=== PATIENT | female | born 1965 | race Caucasian/White ===

== ENCOUNTER → 2021-03-08 | Outpatient (CLI) | payer OTHER ==
[2021-03-08 19:26] LABS: ALT 17 U/L (8-44); AST 16 U/L (13-35); African American GFR (CKD) 94.2 (60.0-200.0); Albumin 4.3 g/dL (3.8-4.9); Albumin/Globulin Ratio 1.72 (1.60-3.17); Alkaline Phosphatase 68 U/L (41-126); BUN/Creat Ratio 17.63 Ratio (12.00-20.00); Blood Urea Nitrogen 14.1 mg/dL (9.0-27.0); Calcium 9.3 mg/dL (8.7-10.3); Carbon Dioxide 24.2 mmol/L (20.0-27.5); Chloride 106 mmol/L (96-109); Chol/HDL Ratio 3.13 Ratio; Globulin 2.5 g/dL (1.6-3.3); Glucose 94 mg/dL (70-110); LDL Cholesterol,Calculated 109.3 mg/dL (0.0-131.0); Non-African American GFR(CKD) 81.3 (60.0-200.0); Potassium 4.1 mmol/L (3.5-5.5); Sodium 140 mmol/L (135-145); Total Protein 6.8 g/dL (6.2-8.2); VLDL Calculation 18.74 mg/dL (5.00-40.00)
[2021-03-08 19:59] LABS: Basophils # (A) 0.07 X 10*3/uL (0.00-0.10); Eosinophils # (A) 0.17 X 10*3/uL (0.04-0.35); Eosinophils % (A) 2.5 %; HCT 40.9 % (37.2-46.3); HGB 12.9 g/dL (12.0-15.0); Lymphocytes # (A) 2.15 X 10*3/uL (0.90-5.00); Lymphocytes % (A) 31.9 %; MCH 30.7 pg (27.0-32.0); MCHC 31.5 g/dL (32.0-37.0); MCV 97.4 fL (80.0-97.0); Mean Platelet Volume 10.3 fL (9.5-12.2); Monocytes # (A) 0.43 X 10*3/uL (0.20-1.00); Monocytes % (A) 6.4 %; Neutrophils % (A) 57.8 %; Platelet Count 296 X 10*3/uL (140-440); RDW 12.3 % (11.5-14.5); WBC 6.75 X 10*3/uL (4.50-10.00)
== END | disposition home or self-care (01) ==
LOC: LABWHC1 12:37
PROVIDERS: ATTEND Family Medicine
DX: Z00.00 Encounter for general adult medical examination without abnormal findings (principal); M54.30 Sciatica, unspecified side; M25.562 Pain in left knee
CPT/HCPCS: 36415; 80053; 80061; 85025

== ENCOUNTER → 2021-03-08 | Outpatient (CLI) | payer OTHER ==
--- NOTE | 2021-03-08 13:12 | XR ---
EXAM TYPE: LUMBAR SPINE X RAY SERIES COMPARISON: NONE HISTORY: Pain TECHNIQUE: 4 views are submitted. FINDINGS: Alignment is anatomic. The pedicles are intact. The transverse processes are intact. There is post surgical change right upper quadrant with scoliosis and multilevel severe degenerative marked at L2-L 3. Hypertrophic spurring. No compression deformity. Multilevel facet arthropathy. IMPRESSION: 1. Multilevel degenerative disc disease and facet arthropathy. Consider follow-up MRI
== END | disposition home or self-care (01) ==
LOC: RADXRMAIN 12:50
PROVIDERS: ATTEND Family Medicine
DX: M51.36 Other intervertebral disc degeneration, lumbar region (principal); M47.816 Spondylosis without myelopathy or radiculopathy, lumbar region
CPT/HCPCS: 72100

== ENCOUNTER → 2021-07-08 | Outpatient (CLI) | payer OTHER ==
--- NOTE | 2021-07-09 07:44 | XR ---
Cervical spine HISTORY: M [age], neck pain for 3 months 5 views of the cervical spine, no comparisons There is multilevel spondylosis, loss of disc height greatest at C4-5, C5-6. Minimal retrolisthesis g rade 1 C4-5, C5-6. Facet arthropathy changes are noted. Cervical vertebral bodies show preserved heig ht. Bone mineralization may be slightly reduced. Prevertebral soft tissues are normal. Probable atele ctatic vascular calcifications present in the distribution of the carotid artery on the left. Multile nancy uncovertebral joint hypertrophy noted, there is foraminal encroachment on the right at C4-5 and C 5-6 and on the left at C5-6. IMPRESSION: Degenerative disc disease, facet arthropathy, foraminal encroachment
== END | disposition home or self-care (01) ==
LOC: RADXRMAIN 11:44
PROVIDERS: ATTEND Internal Medicine Geriatric Medicine
DX: M47.812 Spondylosis without myelopathy or radiculopathy, cervical region (principal); M43.12 Spondylolisthesis, cervical region; M50.30 Other cervical disc degeneration, unspecified cervical region
CPT/HCPCS: 72052

== ENCOUNTER → 2021-08-04 | Outpatient (CLI) | payer OTHER ==
[2021-08-04 08:32] VITALS: BP 139/82; PULSE 91; RESP 18; TEMP 98.2
--- NOTE | 2021-08-04 08:36 | P.PAINPG ---
PQRS Measure Charge Sheet Comment: HISTORY OF PRESENT ILLNESS: 56 yr old female as a referral from Dr. Nina NPC presents today with severe and chronic LBP secondary to DDD, disc bulges, neuroforaminal stenoses and facet arthropathy for evaluation. She states her pain level is 6 out of 10 in intensity, constant, dull, achy in the mid - lower aspects of her lumbar spine with radiation of sharp pain and numbness down the left lower extremity. Pain is provoked with standing/walking for 10 minutes or more or sitting for 30 minutes or more. Pain is relieved with medications (Flexeril, Motrin 800 mg), heat which irritates pain, physical therapy in April 2021 which provoked pain, home exercise regimen as tolerated, repositioning and rest. PMH: OA, Fibromyalgia PSH: Sinus Surgery, Cholecystectomy, Hysterectomy (1993), D & C x 4 SH: Negative x 3 FH: Father- CAD. Mother-Parathyroid disorder. Grandfather- Colon CA. Syblings- DM. All: See list Meds: See list REVIEW OF ORGAN SYSTEMS: CONSTITUTIONAL: No fevers or chills. No recent weight loss. HEENT: No visual acuity loss, eye pain, difficulties with hearing. No nosebleeds. No difficulty swallowing. RESPIRATORY: Denies any troubles with breathing or dyspnea on exertion. CARDIOVASCULAR: Denies any chest pain, palpitations, or recent heart attacks. GASTROINTESTINAL: Denies fatty food intolerance. Has change in bowel habits and gas bloat. GENITOURINARY: Denies any blood in urine. Has increased urinary frequency. NEUROLOGICAL: + numbness and tingling along the distal extremities. No seizure disorders or headaches. MUSCULOSKELETAL: + back pain SKIN: No skin cancer. No rash. PSYCHIATRIC: Denies current depression or suicidal thoughts. ENDOCRINE: Denies current thyroid disorders. Denies any blood sugar glucose intolerance. HEME/LYMPHATIC: Denies any lumps and bumps around the neck. History of deep venous thrombosis. ALLERGY/IMMUNOLOGY: No immunoglobulin therapy. No immune deficiencies. BREAST: Denies current breast lumps, pain or nipple discharge. Physical Examinations : Constitutional : Cooperative , not in acute distress . HEENT: Neck supple. No Lymphadenopathy. Normal thyroid size . Eyes no ptosis , no icterus, no photophobia . Hearing intact. Normal oropharynx. No Thrush. Respiratory : Chest clear to auscultations bilaterally. No wheezing. No rhonchi. Cardiovascular : Regular rate and rhythm , S1 / S2. No S3 . No S4. Gastrointestinal : Abdomen soft. No tenderness. Bowel sounds x 4. No organomegaly . Genitourinary : Deferred. Neurologic : Cranial nerve II to XII intact. No focal neurological deficits. Psychiatric : alert & oriented x 3. Matching mood & appropriate affect. Judgment & insight intact. Lymphatic No Lymphadenopathy. Musculoskeletal : Cervical Spine Motor strength in the deltoid and biceps: Normal right side. Normal Left side Motor strength biceps and the wrist extensors: Normal right side . Normal left side Motor strength in the triceps muscle: Normal right side. Normal left side Deep tendon reflexes: Normal at the biceps. Normal at Brachioradialis. Normal at triceps Cervical facet loading test: positive bilaterally Spurling test: positive bilaterally Neck distraction test: positive bilaterally Misha sign: positive bilaterally Lumbar spine Motor strength lower extremities ,thigh and legs 5/5 Right side , 5/5 Left side Deep tendon reflexes : Normal Knee Jerk. Normal Ankle Jerk Vertebral body tenderness over L4, L5 Lumbar facet Loading Test: positive Right / positive Left Range of motion of the lumbar spine Flexion 30 degrees, extension 10 degrees Straight Leg Raise test: Left/ Right positive at 30 degrees Marialuisa test: positive right / positive left. Severe tenderness over the Sacroiliac joint on the Right / Left sides Gaenslen test: positive bilaterally Seated flexion test: positive bilaterally. Sacral spine : Severe tenderness over the Sacroiliac joint: right side / left side Range of motion: Flexion of the lumbar spine <60 degrees Range of motion: Extension of the lumbar spine <20 degrees Gaenslen's Test positive Neftali's Test positive Marialuisa test: positive right side / left side Thigh Thrust Test Sacral Thrust Test Imaging: MRI without contrast of the lumbar spine from 05/19/21 reviewed Assessment/ Plan : Lumbar DDD Recommendation of LESI L4-L5. May need a series of injections, up to 3 within a six-month timeframe, for optimal pain relief. Risks, benefits of procedure discussed and patient verbalized understanding. Denies aspirin or anti- c oagulant use or medical history of diabetes. All questions answered. I have spent greater than 50 minutes on patient care today. Dr Wahl was available by phone for the evaluation of this patient. The time was used to review the medical records including relevant urine studies and Prescription history (MAPs), review of the available imaging, evaluation and examination of the patient, coordination of care with the medical staff and if applicable referring physicians, as well as creation of the medical record Controlled Substance Measures - Controlled Substance Measures Is patient prescribed a controlled substance at discharge?: No
== END ==
LOC: PNWHC3 08:04
PROVIDERS: ATTEND Specialist
DX: M51.36 Other intervertebral disc degeneration, lumbar region (principal); M19.90 Unspecified osteoarthritis, unspecified site; Z91.041 Radiographic dye allergy status; Z88.8 Allergy status to other drugs, medicaments and biological substances
CPT/HCPCS: 99211

== ENCOUNTER → 2021-08-12 | Outpatient (CLI) | payer OTHER ==
--- NOTE | 2021-08-13 03:31 | MR ---
EXAMINATION TYPE: MR cervical spine wo/w con DATE OF EXAM: 08/12/2021 COMPARISON: None HISTORY: Neck pain and numbness in hands for 3 months. CONTRAST: Standard multiplanar, multisequence MRI departmental protocol images were obtained without contrast a nd with 7.5 mL intravenous Gadavist gadolinium contrast. The cervical vertebra have normal alignment. There is mild disc space narrowing throughout the cervic al spine. There is posterior disc bulging from C2 to C7. Disc bulging or herniation larger at C2-3. T he canal measures 8.5 mm at C2-3. There is posterior larger disc herniation at C6-7 with spinal canal that measures 8.5 mm. There is developmentally adequate spinal canal. No compression fracture. The b rainstem is intact. No evidence of cervical spinal cord edema. IMPRESSION: Multilevel posterior disc bulging and herniation as above that is more severe at C2-3 and C6-7. No ev idence of any significant spinal stenosis. No fracture.
== END | disposition home or self-care (01) ==
LOC: RADMRIMAIN 10:44
PROVIDERS: ATTEND Internal Medicine Geriatric Medicine
DX: M50.223 Other cervical disc displacement at C6-C7 level (principal)
CPT/HCPCS: 72156; A9585

== ENCOUNTER 2021-11-04 06:44 | Day surgery (SDC) | payer OTHER ==
[2021-11-02 15:56] VITALS: BMI 27.9
[~2021-11-04 06:44] MED LIST: LACTATED RINGERS 1,000 ML IV SCH; LIDOCAINE 1% (10MG/ML) FOR IV START INTRADERMA PRN
[2021-11-04 07:07] VITALS: TEMP 97.2
[2021-11-04] MEDS ORDERED: MIDAZOLAM 2 MG/2 ML VIAL ONE (08:13)
[2021-11-04] MEDS ORDERED: methylPREDNISolone ACETATE 80 MG/ML 1 ML VIAL ONE (08:13)
[2021-11-04] MEDS ORDERED: IOPAMIDOL M200 10 ML VIAL ONE (08:13)
[2021-11-04] MEDS ORDERED: fentaNYL (PF) 50 MCG/ML 2 ML AMP ONE (08:13)
--- NOTE | 2021-11-04 08:30 | P.PCN ---
Date of Procedure: 11/04/21 Procedure(s) Performed: PREOPERATIVE DIAGNOSIS: 1- Lumbar Degenerative Disc Diseases 2-Lumbar spondylosis with Facet arthropathy without myelopathy POSTOPERATIVE DIAGNOSIS: Same as preop diagnosis. PROCEDURE 1. Lumbar epidural steroid injection under fluoroscopic guidance at the L4-5 level. (Fluoroscopy imaging was available in radiology department) 2. Lumbar epidurogram. ANESTHESIA: moderate sedation with intravenous Versed 2 mg ,and fentanyle 100 Mcg Sedation start time : 0818 Sedation end time : 0 827 EBL: Minimal PROCEDURE INDICATION: The patient with low back pain and radiculitis symptoms unresponsive to conservative treatment. Fluoroscopy was used to optimize visualization of the needle placement and to maximize safety. PROCEDURE DESCRIPTION / TECHNIQUE: The patient was seen and identified in the preoperative area. Risks, benefits, complications including but not limited to infections ,bleeding ,allergic reaction to the medications ,nerve damage and not complete pain releife , and alternatives were discussed with the patient. The patient agreed to proceed with the procedure and signed the consent. IV was started, and vital signs were stable. Patient was taken to the OR and time out was completed. The patient was placed in the prone position on procedure table and a pillow was placed under the abdomen to reduce lumbar lordosis. The lumbosacral area was prepped and draped in the usual sterile fashion.ere closely monitored during the procedure. Conscious sedation was used during the procedure to decrease patients anxiety. Vital signs was monitered during the entire procedure. Using anterior-posterior fluoroscopy, the L4-5 interlaminar space was identified and the skin over this site was marked and then infiltrated with 1% lidocaine subcutaneously. Subsequently, a 20-gauge Tuohy epidural needle was inserted and advanced toward the epidural space using the ``Loss of resistance technique and guided by AP and lateral fluoroscopy. The correct needle position in the epidural space was verified with the injection of 2 mL of the water soluble contrast dye Isovue 200 contrast and observing an excellent epidurogram with the epidural spread of the dye, after negative aspiration for blood and CSF and in the absence of paresthesias. Again after negative aspiration, a 6 ml mixture containing 80 mg of Depo-medrol , and 2 ml of preservative free Normal Saline, and 2 ml of preservative free lidocaine 1% solution was injected and a washout of epidurogram was seen. Needle was withdrawn intact, skin was cleansed, and bandages were applied. COMPLICATIONS: None DISPOSITION / PLANS: The patient was placed in a supine position and transferred to the recovery area in a stable condition for observation. There was no evidence of lower extremity motor or sensory deficit after the procedure. Patient was discharged from the recovery room after meeting discharge criteria. Home discharge instructions were given to the patient by the staff. The patient was reexamined prior to discharge. The patient will schedule a follow up in the clinic in 2-4 weeks.
[2021-11-04] MEDS ORDERED: IV FLUID CONTINUATION 600 ML IV ONE (08:36)
--- NOTE | 2021-11-04 08:38 | FL ---
Fluoroscopy HISTORY: Pain 1 seconds fluoroscopy time supplied to the referring clinician. 1 intraoperative C-arm images docume nt the procedure. See dictated report from anesthesia.
[2021-11-04 08:44] VITALS: RESP 20
[2021-11-04 08:55] VITALS: BP 101/60; PULSE 70
== END 2021-11-04 09:02 | disposition home or self-care (01) ==
LOC: ORPAIN 06:44
PROVIDERS: ATTEND Specialist
DX: M51.16 Intervertebral disc disorders with radiculopathy, lumbar region (principal); M47.26 Other spondylosis with radiculopathy, lumbar region
CPT/HCPCS: 62323; J2250; J1040; J3010; Q9966; 99152

== ENCOUNTER → 2021-11-25 | Outpatient (CLI) | payer OTHER ==
[2021-11-25 07:58] VITALS: BP 117/82; PULSE 78; RESP 18; TEMP 98.4
--- NOTE | 2021-11-25 14:47 | P.PAINPG ---
Objective - Vital Signs Vital signs: Intake & Output 11/24/21 11/25/21 11/25/21 18:59 06:59 18:59 Weight 73.936 kg PQRS Measure Charge Sheet Comment: A 56 yr old female with a history of severe and chronic low back pain secondary to lumbar degenerative disc diseases and lumbar spondylosis with facet arthropathy without myelopathy presents today for evaluation s/p SHANIA L4-L5 #2. Pt states she experienced 80% pain relief x 3 wks s/p procedure. Pain level is currently at 2/10 in intensity, constant, localized in the lower lumbar spine, dull/ achy in character without radiation of pain. Pain is provoked by heat, ice, standing for periods of 15 min or more or climbing stairs. Pain is alleviated with PT x 6 wks ended in Apr 2021, medications, repositioning and rest. Interventional pain procedures completed include SHANIA L4-L5 x2 Patient is currently on Neurontin, Ibuprofen Patient denies any side effects of the medication(s), denies excessive drowsiness or sleepiness, denies suicidal ideation and reports that the current pain medication is helping to control the pain and improve activities of daily living. Patient denies any motor or sensory deficits. Patient denies any fever or night sweats, denies any change in the bowel movements or urination. Physical Examination: -Constitutional: Cooperative. Not in acute distress . - Neurologic: Cranial nerve II to XII intact. No focal neurological deficits. - Psychatric: Alert & oriented x 3. Matching mood & appropriate affect. Judgment and insight intact. - Musculoskeletal: Cervical spine: Muscle bulk/ tone/ strength in the bilateral upper extremities normal Vertebral body tenderness to palpation over Spurling test positive Distraction test positive Facet loading test positive Thoracic spine Muscle bulk / tone/ strength in the bilateral paraspinal muscles normal Vertebral body tender to palpation over Facet loading test positive Lumbar spine: Motor bulk/ tone/ strength lower extremities , thigh and legs : 5/5 Deep tendon reflexes : Normal Knee Jerk. Normal Ankle Jerk . Vertebral body tenderness to palpation over Lumbar Facet Loading Test positive Straight Leg Raise: positive at 30 degrees right side/ left side Gaenslen's Test positive Sacral spine : Severe tenderness over the Sacroiliac joint: right side / left side Range of motion: Flexion of the lumbar spine <60 degrees Range of motion: Extension of the lumbar spine <20 degrees Gaenslen's Test positive Neftali's Test positive Marialuisa test: positive right side / left side Thigh Thrust Test Sacral Thrust Test Assessment and plan: Chronic low back pain secondary to lumbar degenerative disc disease , lumbar spondylosis with facet arthropathy without myelopathy Pt sustained sufficient and satisfactory pain relief w prior procedures. She will continue home pain mgmt modalities and may return to our clinic on an as needed basis. Risks, benefits of procedure discussed and pt verbalized understanding. Denies anticoagulant use or medical history of diabetes. All patient questions answered I have spent less than 30 minutes on patient care today. Dr Wahl was available by phone for the evaluation of this patient. The time was used to review the medical records including relevant urine studies and Prescription history (MAPs), review of the available imaging, evaluation and examination of the patient, coordination of care with the medical staff and if applicable referring physicians, as well as creation of the medical record - Pain Location Lower Back Non-Pharmacological Interventions: Inactivity, Physical Therapy Pharmacological Interventions: Epidural, PRN Medication, Scheduled Medication PQRS Narrative: Pain Intensity [Lower Back] 3 Scale Used Numeric (1 - 10) Hx Alcohol Use (MH) Yes: OCCASIONAL Home Medications: Ambulatory Orders Gabapentin 300 mg PO TID 09/30/21 traZODone HCL [Desyrel] 100 mg PO HS 09/30/21 Controlled Substance Measures - Controlled Substance Measures Is patient prescribed a controlled substance at discharge?: No
== END ==
LOC: PNWHC3 07:34
PROVIDERS: ATTEND Specialist
DX: M51.36 Other intervertebral disc degeneration, lumbar region (principal); M47.816 Spondylosis without myelopathy or radiculopathy, lumbar region; G89.29 Other chronic pain; F10.90 Alcohol use, unspecified, uncomplicated; Z88.8 Allergy status to other drugs, medicaments and biological substances
CPT/HCPCS: 99211

== ENCOUNTER → 2022-01-26 | Outpatient (CLI) | payer OTHER ==
--- NOTE | 2022-01-31 09:54 | MM ---
Reason for Exam: Screening (asymptomatic). Last mammogram was performed 5 year(s) and 0 month(s) ago. Patient History: Menarche at age 10. First Full-Term at age 11. Left ovary removed at age 29. Right ovary removed at age 29. Hysterectomy at age 28. Postmenopausal. Patient used Estrogen for 7 years. Cyst Aspiration on the Left side. Risk Values: Erinn 5 year model risk: 1.0%. NCI Lifetime model risk: 5.5%. Prior Study Comparison: 05/17/2000 Bilateral Diagnostic Mammogram, [facility]. 06/19/2001 Bilateral Diagnostic Mammogram, [facility]. 06/27/2001 Left Special View Mammogram, [facility]. Tissue Density: There are scattered fibroglandular densities. Findings: Analyzed By CAD. There are a few tiny scattered and loosely grouped benign Calcifications throughout the bilateral breasts identified. Proximal and 5 mm focal asymmetry in the anterior depth upper outer aspect right breast warrants further workup There is no suspicious group of microcalcifications in either breast. Overall Assessment: Incomplete: need additional imaging evaluation, BI-RAD 0 Management: Special View Mammogram of the right breast. Return for additional views including spot 3-D views and 3-D true lateral view right breast. Electronically signed and approved by: Donny Pérez M.D.
== END | disposition home or self-care (01) ==
LOC: RADMAMWWP 14:24
PROVIDERS: ATTEND Internal Medicine Geriatric Medicine
DX: Z12.31 Encounter for screening mammogram for malignant neoplasm of breast (principal); Z78.0 Asymptomatic menopausal state; Z90.721 Acquired absence of ovaries, unilateral
CPT/HCPCS: 77063; 77067

== ENCOUNTER → 2022-02-09 | Outpatient (CLI) | payer OTHER ==
--- NOTE | 2022-02-09 07:36 | MM ---
Reason for Exam: Additional evaluation requested from abnormal screening. Last screening mammogram was performed less than 1 month ago. Patient History: Menarche at age 10. First Full-Term at age 11. Left ovary removed at age 29. Right ovary removed at age 29. Hysterectomy at age 28. Postmenopausal. Patient used Estrogen for 7 years. Cyst Aspiration on the Left side. Risk Values: Erinn 5 year model risk: 1.0%. NCI Lifetime model risk: 5.5%. Prior Study Comparison: 05/17/2000 Bilateral Diagnostic Mammogram, [facility]. 06/19/2001 Bilateral Diagnostic Mammogram, [facility]. 06/27/2001 Left Special View Mammogram, [facility]. 01/26/2022 Bilateral MG 3D screening mammo w/cad, [facility]. Tissue Density: Right: There are scattered fibroglandular densities. Findings: Analyzed By CAD. The area of concern in the right breast compresses out on spot compression view. No suspicious masses calcifications or distortions. Overall Assessment: Benign, BI-RAD 2 Management: Screening Mammogram of both breasts in 1 year. A clinical breast exam by your physician is recommended on an annual basis and results should be correlated with mammographic findings. This exam should not preclude additional follow-up of suspicious palpable abnormalities. Results were given to the patient verbally at the time of exam. Electronically signed and approved by: Antonio Leon DO
== END | disposition home or self-care (01) ==
LOC: RADMAMWWP 06:42
PROVIDERS: ATTEND Internal Medicine Geriatric Medicine
DX: R92.8 Other abnormal and inconclusive findings on diagnostic imaging of breast (principal); Z78.0 Asymptomatic menopausal state; Z98.890 Other specified postprocedural states
CPT/HCPCS: 77065; G0279; 77061

== ENCOUNTER → 2022-05-04 | Outpatient (CLI) | payer OTHER ==
[2022-05-04 09:14] VITALS: BP 126/85; PULSE 90; RESP 18; TEMP 98
--- NOTE | 2022-05-04 14:26 | P.PAINPG ---
PQRS Measure Charge Sheet Comment: A 57 yr old female with a history of severe and chronic neck pain secondary to cervical DDD and spondylosis with facet arthropathy without myelopathy presents today for neck pain. Pain level is provoked at 7/10 in intensity, constant, localized in the mid to lower cervical spine, sore in character w shooting towards the BL shoulders. Pain is provoked by flexion. Pain is alleviated with PT x 6 wks in June 2022, heat, medications, KT tape at PT, repositioning and rest. Interventional pain procedures completed include SHANIA L4-L5 x2 Patient is currently on Neurontin, Flexil, Ibu Patient denies any side effects of the medication(s), denies excessive drowsiness or sleepiness, denies suicidal ideation and reports that the current pain medication is helping to control the pain and improve activities of daily living. Patient denies any motor or sensory deficits. Patient denies any fever or night sweats, denies any change in the bowel movements or urination. Physical Examination: -Constitutional: Cooperative. Not in acute distress . - Neurologic: Cranial nerve II to XII intact. No focal neurological d eficits. - Psychatric: Alert & oriented x 3. Matching mood & appropriate affect. Judgment and insight intact. - Musculoskeletal: Cervical spine: Muscle bulk/ tone/ strength in the bilateral upper extremities normal Vertebral body tenderness to palpation over C6 Spurling test positive Distraction test positive Facet loading test positive TTP Thoracic spine Muscle bulk / tone/ strength in the bilateral paraspinal muscles normal Vertebral body tender to palpation over Facet loading test positive TTP Lumbar spine: Motor bulk/ tone/ strength lower extremities , thigh and legs : 5/5 Deep tendon reflexes : Normal Knee Jerk. Normal Ankle Jerk . Vertebral body tenderness to palpation over Lumbar Facet Loading Test positive Straight Leg Raise: positive at 30 degrees right side/ left side Gaenslen's Test positive Sacral spine : Severe tenderness over the Sacroiliac joint: right side / left side Range of motion: Flexion of the lumbar spine <60 degrees Range of motion: Extension of the lumbar spine <20 degrees Gaenslen's Test positive R / L Marialuisa test: positive right side / left side Thigh Thrust Test positive R / L Sacral Thrust Test positive R/ L Assessment and plan: Chronic neck pain secondary to cervical DDD, spondylosis with facet arthropathy without myelopathy Recommendation of SHANIA C6-C7. May need a series fo injections for optimal pain relief. Risks, benefits of procedure discussed and pt verbalized understanding. Admits to anticoagulant use or medical history of diabetes. Protocol for discontinuation/ continuation of medications beny procedure discussed. All questions answered. I have spent less than 30 minutes on patient care today. Dr Wahl was available by phone for the evaluation of this patient. The time was used to review the medical records including relevant urine studies and Prescription history (MAPs), review of the available imaging, evaluation and examination of the patient, coordination of care with the medical staff and if applicable referring physicians, as well as creation of the medical record PQRS Narrative: Hx Alcohol Use (MH) Yes: OCCASIONAL Home Medications: Ambulatory Orders Gabapentin 300 mg PO TID 09/30/21 traZODone HCL [Desyrel] 100 mg PO HS 09/30/21 Controlled Substance Measures - Controlled Substance Measures Is patient prescribed a controlled substance at discharge?: No
== END ==
LOC: PNWHC3 08:37
PROVIDERS: ATTEND Specialist
DX: M50.30 Other cervical disc degeneration, unspecified cervical region (principal); M47.812 Spondylosis without myelopathy or radiculopathy, cervical region; G89.29 Other chronic pain; M51.36 Other intervertebral disc degeneration, lumbar region; M50.20 Other cervical disc displacement, unspecified cervical region; M43.12 Spondylolisthesis, cervical region; Z88.6 Allergy status to analgesic agent; Z91.041 Radiographic dye allergy status
CPT/HCPCS: 99211

== ENCOUNTER → 2022-05-26 | Day surgery (SDC) | payer OTHER ==
[~2022-05-26] MED LIST changes: +DEXAMETHASONE SOD PHOSPHATE 10 MG/ML 1 ML VIAL ONE; +IOPAMIDOL M200 10 ML VIAL ONE; +IV FLUID CONTINUATION 650 ML IV ONE; +MIDAZOLAM 2 MG/2 ML VIAL ONE; +fentaNYL (PF) 50 MCG/ML 2 ML AMP ONE
[2022-05-26 08:16] VITALS: TEMP 97
--- NOTE | 2022-05-26 08:47 | P.PCN ---
Date of Procedure: 05/26/22 Procedure(s) Performed: . PROCEDURE 1. Cervical epidural steroid injection under fluoroscopic guidance, C6-7 (fluoroscopy images available in the radiology department ) 2. Cervical epidurogram. PREOPERATIVE DIAGNOSIS: 1- Cervical Degenerative Disc Diseases 2- Cervical radiculopathy., 3-cervical spondylosis with cervical Facet arthropathy without myelopathy.4-cervical spinal stenosis POSTOPERATIVE DIAGNOSIS: : 1- Cervical Degenerative Disc Diseases , 2- Cervical radiculopathy. 3-,cervical spondylosis with cervical Facet arthropathy without myelopathy. 4-cervical spinal stenosis ANESTHESIA: moderate sedation, with Versed 1 mg and Fentanyl 50 mcg. Sedation start time :0839 Sedation end time : 0845 EBL 0 PROCEDURE INDICATION: The patient with neck pain and radiculitis unresponsive to conservative treatment consents for procedure. PROCEDURE DESCRIPTION / TECHNIQUE: The patient was seen and identified in the preoperative area. Risks, benefits, complications, including but not limited to infections ,bleeding , allergic reactions to the medications ,and not complete pain releife, and alternatives were discussed with the patient, the patient agreed to proceed with the procedure and signed the consent. Patient was taken to the OR and time out was completed. The patient was placed in the prone position on the procedure table. A pillow was placed under the patients chest to increase the cervical interlaminar space. The cervical area was prepped and draped in the usual sterile fashion. Vital signs were closely monitored during the procedure. Conscious sedation was used during the procedure to decrease patients anxiety. Using anterior-posterior fluoroscopy, the C6-7 interlaminar space was identified and the skin over this site was marked and then infiltrated with 1% lidocaine subcutaneously. Subsequently, a 20-gauge 3-1/2-inch Tuohy epidural needle was inserted and advanced toward the epidural space by means of the ``hanging-drop technique and guided by AP and lateral fluoroscopy. The correct needle position in the epidural space was verified with the injection of 2 mL of the water soluble contrast dye Isovue-200 and observing an excellent epidurogram with the epidural spread of the dye, after negative aspiration for blood and CSF and in the absence of paresthesias. then, mixture containing 20 mg Dexamethasone and 2 ml of preservative-free normal saline injected and a washout of epidurogram was seen. Needle was withdrawn intact, skin was cleansed, and bandages were applied. Complications= none. Disposition= patient was placed in supine position and transferred to the recovery room area in stable condition and there was no evidence of upper or lower extremity motor or sensory deficit after the procedure patient was discharged from recovery room after discharge criteria met and home discharge instructions was given by the staff and patient will follow with the pain clinic in 2-4 weeks
[2022-05-26 08:56] VITALS: RESP 16
[2022-05-26 09:07] VITALS: BP 121/82; PULSE 71
--- NOTE | 2022-05-26 10:43 | FL ---
Fluoroscopy History: Pain 5sec fluoro time.....0.21757 DAP 1image to PACS
== END ==
LOC: ORPAIN 07:26
PROVIDERS: ATTEND Specialist
DX: M50.123 Cervical disc disorder at C6-C7 level with radiculopathy (principal); M47.26 Other spondylosis with radiculopathy, lumbar region; M48.02 Spinal stenosis, cervical region
CPT/HCPCS: 62321; J2250; J1100; J3010; Q9966

== ENCOUNTER → 2022-06-15 | Outpatient (CLI) | payer OTHER ==
[2022-06-15 10:01] VITALS: BP 129/85; PULSE 94; RESP 18; TEMP 97.9
--- NOTE | 2022-06-15 14:32 | P.PAINPG ---
PQRS Measure Charge Sheet Comment: A 57 yr old female with a history of severe and chronic neck pain secondary to cervical DDD and spondylosis with facet arthropathy without myelopathy presents today for evaluation s/p SHANIA C6-7. 80% pain relief x 2 wks s/p procedure. Pain level is provoked at 6 /10 in intensity, constant, localized in the cervical spine, sore in character w shooting towards the BUEs. Pain is provoked by lifting. Pain is alleviated with PT x 6 wks in 2021, ice, medications, repositioning and rest. Interventional pain procedures completed include SHANIA L4-L5 x2, SHANIA C6-C7 x1 Patient is currently on Neurontin, Ibu, muscle relaxer Patient denies any side effects of the medication(s), denies excessive drowsiness or sleepiness, denies suicidal ideation and reports that the current pain medication is helping to control the pain and improve activities of daily living. Patient denies any motor or sensory deficits. Patient denies any fever or night sweats, denies any change in the bowel movements or urination. Physical Examination: -Constitutional: Cooperative. Not in acute distress . - Neurologic: Cranial nerve II to XII intact. No focal neurological deficits. - Psychatric: Alert & oriented x 3. Matching mood & appropriate affect. Judgment and insight intact. - Musculoskeletal: Cervical spine: Muscle bulk/ tone/ strength in the bilateral upper extremities normal Vertebral body tenderness to palpation over C6 Spurling test positive over C6 Distraction test positive Facet loading test positive TTP Thoracic spine Muscle bulk / tone/ strength in the bilateral paraspinal muscles normal Vertebral body tender to palpation over Facet loading test positive TTP Lumbar spine: Motor bulk/ tone/ strength lower extremities , thigh and legs : 5/5 Deep tendon reflexes : Normal Knee Jerk. Normal Ankle Jerk . Vertebral body tenderness to palpation over Lumbar Facet Loading Test positive Straight Leg Raise: positive at 30 degrees right side/ left side Gaenslen's Test positive Sacral spine : Severe tenderness over the Sacroiliac joint: right side / left side Range of motion: Flexion of the lumbar spine <60 degrees Range of motion: Extension of the lumbar spine <20 degrees Gaenslen's Test positive R / L Marialuisa test: positive right side / left side Thigh Thrust Test positive R / L Sacral Thrust Test positive R/ L Assessment and plan: Chronic neck pain secondary to cervical DDD, spondylosis with facet arthropathy without myelopathy Recommendation of SHANIA C6-C7 #2. May need a series of injections for optimal pain relief. Risks, benefits of procedure discussed and pt verbalized understanding. Admits to anticoagulant use or medical history of diabetes. Protocol for discontinuation/ continuation of medications beny procedure discussed. All questions answered. I have spent less than 30 minutes on patient care today. Dr Wahl was available by phone for the evaluation of this patient. The time was used to review the medical records including relevant urine studies and Prescription history (MAPs), review of the available imaging, evaluation and examination of the patient, coordination of care with the medical staff and if applicable referring physicians, as well as creation of the medical record PQRS Narrative: Hx Alcohol Use (MH) Yes: OCCASIONAL Home Medications: Ambulatory Orders Gabapentin 300 mg PO TID 09/30/21 traZODone HCL [Desyrel] 100 mg PO HS 09/30/21 Cyclobenzaprine [Flexeril] 5 mg PO TID 05/23/22 Controlled Substance Measures - Controlled Substance Measures Is patient prescribed a controlled substance at discharge?: No
== END ==
LOC: PNWHC3 09:01
PROVIDERS: ATTEND Specialist
DX: M50.323 Other cervical disc degeneration at C6-C7 level (principal); G89.29 Other chronic pain; M47.812 Spondylosis without myelopathy or radiculopathy, cervical region; Z88.8 Allergy status to other drugs, medicaments and biological substances
CPT/HCPCS: 99211

== ENCOUNTER 2022-07-05 07:49 | Day surgery (SDC) | payer OTHER ==
[~2022-07-05 07:49] MED LIST changes: -DEXAMETHASONE SOD PHOSPHATE 10 MG/ML 1 ML VIAL ONE; -IOPAMIDOL M200 10 ML VIAL ONE; -IV FLUID CONTINUATION 650 ML IV ONE; -MIDAZOLAM 2 MG/2 ML VIAL ONE; -fentaNYL (PF) 50 MCG/ML 2 ML AMP ONE
[2022-07-05 08:05] VITALS: TEMP 97
[2022-07-05] MEDS ORDERED: MIDAZOLAM 2 MG/2 ML VIAL ONE (08:44)
[2022-07-05] MEDS ORDERED: fentaNYL (PF) 50 MCG/ML 2 ML AMP ONE (08:44)
[2022-07-05] MEDS ORDERED: DEXAMETHASONE SOD PHOSPHATE 10 MG/ML 1 ML VIAL ONE (08:44)
[2022-07-05] MEDS ORDERED: LACTATED RINGERS 1,000 ML IV ONE (08:50)
--- NOTE | 2022-07-05 08:56 | P.PCN ---
Date of Procedure: 07/05/22 Procedure(s) Performed: PROCEDURE 1. Cervical epidural steroid injection under fluoroscopic guidance, C6-7 (fluoroscopy images available in the radiology department ). PREOPERATIVE DIAGNOSIS: 1- Cervical Degenerative Disc Diseases 2- Cervical radiculopathy., 3-cervical spondylosis with cervical Facet arthropathy without myelopathy.4-cervical spinal stenosis POSTOPERATIVE DIAGNOSIS: : 1- Cervical Degenerative Disc Diseases , 2- Cervical radiculopathy. 3-,cervical spondylosis with cervical Facet arthropathy without myelopathy. 4-cervical spinal stenosis ANESTHESIA: moderate sedation, with Versed 1 mg and Fentanyl 50 mcg. Sedation start time :845 Sedation end time : 851 EBL 0 PROCEDURE INDICATION: The patient with neck pain and radiculitis unresponsive to conservative treatment consents for procedure. PROCEDURE DESCRIPTION / TECHNIQUE: The patient was seen and identified in the preoperative area. Risks, benefits, complications, including but not limited to infections ,bleeding , allergic reactions to the medications ,and not complete pain releife, and alternatives were discussed with the patient, the patient agreed to proceed with the procedure and signed the consent. Patient was taken to the OR and time out was completed. The patient was placed in the prone position on the procedure table. A pillow was placed under the patients chest to increase the cervical interlaminar space. The cervical area was prepped and draped in the usual sterile fashion. Vital signs were closely monitored during the procedure. Conscious sedation was used during the procedure to decrease patients anxiety. Using anterior-posterior fluoroscopy, the C6-7 interlaminar space was identified and the skin over this site was marked and then infiltrated with 1% lidocaine subcutaneously. Subsequently, a 20-gauge 3-1/2-inch Tuohy epidural needle was inserted and advanced toward the epidural space by means of the ``hanging-drop technique and guided by AP and lateral fluoroscopy, after negative aspiration for blood and CSF and in the absence of paresthesias. then, mixture containing 20 mg Dexamethasone and 2 ml of preservative-free normal saline injected . Needle was withdrawn intact, skin was cleansed, and bandages were applied. Complications= none. note= Isovue was not injected because patient is ALLERGIC to IVP dye Disposition= patient was placed in supine position and transferred to the recovery room area in stable condition and there was no evidence of upper or lower extremity motor or sensory deficit after the procedure patient was discharged from recovery room after discharge criteria met and home discharge instructions was given by the staff and patient will follow with the pain clinic in 2-4 weeks
[2022-07-05 09:11] VITALS: BP 108/78; PULSE 88; RESP 20
--- NOTE | 2022-07-05 15:09 | FL ---
EXAMINATION TYPE: FL guided pain mgmt statistic DATE OF EXAM: 07/05/2022 FLUOROSCOPY Fluoroscopy time of 2 seconds was used during cervical vertebral steroid injection. 1 image/s docume nt/s the procedure. DOSE AREA PRODUCT (DAP) UGY*M,MGY*CM: 0.41813.
== END 2022-07-05 09:22 | disposition home or self-care (01) ==
LOC: ORPAIN 07:49
PROVIDERS: ATTEND Specialist
DX: M50.123 Cervical disc disorder at C6-C7 level with radiculopathy (principal); M47.22 Other spondylosis with radiculopathy, cervical region; M48.02 Spinal stenosis, cervical region; Z88.8 Allergy status to other drugs, medicaments and biological substances
CPT/HCPCS: 62321; J2250; J1100; J3010

== ENCOUNTER → 2022-07-28 | Outpatient (CLI) | payer OTHER ==
[2022-07-28 09:34] VITALS: BP 141/81; PULSE 85; RESP 18; TEMP 98.4
--- NOTE | 2022-08-04 10:25 | P.PAINPG ---
PQRS Measure Charge Sheet Comment: A 57 yr old female with a history of severe and chronic neck pain secondary to cervical DDD and spondylosis with facet arthropathy without myelopathy presents today for evaluation s/p SHANIA C6-C7. Pt states she experienced 50% pain relief x 3 wks s/p procedure. Pain level is provoked at 5 /10 in intensity, constant, localized in the cervical spine, tight, sore in character w shooting towards the BL shoulders and BUEs. Pain is provoked by lifting, rotation. Pain is alleviated with injections, ice, medications, PT x 6 wks in August 2021, repositioning and rest. Interventional pain procedures completed include ESIs L4-L5 x2, C6-C7 x2 Patient is currently on Neurontin, Ibu Patient denies any side effects of the medication(s), denies excessive drowsiness or sleepiness, denies suicidal ideation and reports that the current pain medication is helping to control the pain and improve activities of daily living. Patient denies any motor or sensory deficits. Patient denies any fever or night sweats, denies any change in the bowel movements or urination. Physical Examination: -Constitutional: Cooperative. Not in acute distress . - Neurologic: Cranial nerve II to XII intact. No focal neurological deficits. - Psychatric: Alert & oriented x 3. Matching mood & appropriate affect. Judgment and insight intact. - Musculoskeletal: Cervical spine: Muscle bulk/ tone/ strength in the bilateral upper extremities normal Vertebral body tenderness to palpation over Spurling test positive Distraction test positive Facet loading test positive TTP Thoracic spine Muscle bulk / tone/ strength in the bilateral paraspinal muscles normal Vertebral body tender to palpation over Facet loading test positive TTP Lumbar spine: Motor bulk/ tone/ strength lower extremities , thigh and legs : 5/5 Deep tendon reflexes : Normal Knee Jerk. Normal Ankle Jerk . Vertebral body tenderness to palpation over Lumbar Facet Loading Test positive Straight Leg Raise: positive at 30 degrees right side/ left side Gaenslen's Test positive Sacral spine : Severe tenderness over the Sacroiliac joint: right side / left side Range of motion: Flexion of the lumbar spine <60 degrees Range of motion: Extension of the lumbar spine <20 degrees Gaenslen's Test positive R / L Marialuias test: positive right side / left side Thigh Thrust Test positive R / L Sacral Thrust Test positive R/ L Assessment and plan: Chronic neck pain secondary to cervical DDD, spondylosis with facet arthropathy without myelopathy Recommendation of follow up w Dr Talavera for additional treatment options. Pt has had 4 ESIs within a 12 mo period. All questions answered. I have spent less than 30 minutes on patient care today. Dr Wahl was available by phone for the evaluation of this patient. The time was used to review the medical records including relevant urine studies and Prescription history (MAPs), review of the available imaging, evaluation and examination of the patient, coordination of care with the medical staff and if applicable referring physicians, as well as creation of the medical record PQRS Narrative: Hx Alcohol Use (MH) Yes: OCCASIONAL Home Medications: Ambulatory Orders Gabapentin 300 mg PO TID 09/30/21 traZODone HCL [Desyrel] 100 mg PO HS 09/30/21 Cyclobenzaprine [Flexeril] 5 mg PO TID 05/23/22 Ibuprofen [Motrin] 800 mg PO HS PRN 07/01/22 Controlled Substance Measures - Controlled Substance Measures Is patient prescribed a controlled substance at discharge?: No
== END ==
LOC: PNWHC3 07:37
PROVIDERS: ATTEND Specialist
DX: M50.323 Other cervical disc degeneration at C6-C7 level (principal); M47.812 Spondylosis without myelopathy or radiculopathy, cervical region; G89.29 Other chronic pain; Z88.8 Allergy status to other drugs, medicaments and biological substances
CPT/HCPCS: 99211

== ENCOUNTER → 2022-10-07 | Outpatient (CLI) | payer OTHER ==
--- NOTE | 2022-10-09 13:26 | MR ---
EXAMINATION TYPE: MR knee RT wo con DATE OF EXAM: 10/07/2022 COMPARISON: 09/21/2022 HISTORY: 57-year-old female Right knee pain TECHNIQUE: Multiplanar, multisequence imaging of the right knee is performed without IV contrast. FINDINGS: The ACL, PCL, and LCL complex are intact. There is degenerative signal within the posterior horn and body of the medial meniscus but without di screte tear is seen at this time. There is a complex multidirectional tear involving the lateral meniscus, especially the body and post erior horn. The body is macerated. Moderate irregular cartilage thinning throughout the mid aspect of the lateral compartment with some mild marginal spurring and early degenerative subchondral marrow s ignal change especially along the tibial side of the joint. Mild superficial cartilage fraying along the lateral patellar facet articular cartilage. Otherwise, o verall patellofemoral compartment articular cartilage volume is maintained. Medial compartment articular cartilage volume is maintained. There is a small knee joint effusion and small leaking Mustafa's cyst. Normal popliteal artery anatomy and muscle bulk. No suspicious bone marrow replacement. IMPRESSION: 1. Complex multidirectional tear of the lateral meniscus. Especially the posterior horn and body. The body is macerated. 2. Moderate irregular cartilage thinning throughout the mid aspect of the lateral compartment with ea rly degenerative subchondral signal change along the tibial side of the joint. 3. In the patellofemoral compartment, there is mild superficial irregular cartilage loss along the la teral patellar facet. 4. Small knee joint effusion and small leaking Mustafa's cyst.
== END | disposition home or self-care (01) ==
LOC: RADMRIMAIN 13:57
PROVIDERS: ATTEND Orthopaedic Surgery
DX: S83.281A Other tear of lateral meniscus, current injury, right knee, initial encounter (principal); M17.11 Unilateral primary osteoarthritis, right knee; M71.21 Synovial cyst of popliteal space [Baker], right knee; X58.XXXA Exposure to other specified factors, initial encounter

== ENCOUNTER 2022-11-16 08:56 | Day surgery (SDC) | payer OTHER ==
--- NOTE | 2022-11-16 07:22 | HP ---
HISTORY AND PHYSICAL DATE OF SURGERY: 11/16/2022. HISTORY OF PRESENT ILLNESS: Virginia Torres is a 57-year-old patient, seen with progressive right knee pain. We discussed options for treatment. She elected to proceed with right knee arthroscopy. Consent was obtained. PAST MEDICAL HISTORY: Noncontributory. PAST SURGICAL HISTORY: Noncontributory. DAILY MEDICATIONS: 1. Ibuprofen. 2. Trazodone. ALLERGIES: None. SOCIAL HISTORY: She denies tobacco use. PHYSICAL EVALUATION OF THE RIGHT KNEE: Range of motion is +1/2 to 115 degrees. Mild effusion. Tenderness, lateral joint line. Positive lateral Dana's. Ligaments are stable. Hip rotation is without pain. Distal neurovascular exam is intact. IMAGING STUDIES: Right knee x-rays revealed mild osteoarthritis. MRI right knee revealed a complex lateral meniscal tear, intra-articular effusion, and Mustafa cyst. IMPRESSION: Internal derangement of right knee with lateral meniscal tear. PLAN: Right knee arthroscopy with partial lateral meniscectomy and debridement. MMODL / IJN: [id number] /
[~2022-11-16 08:56] MED LIST changes: +DEXAMETHASONE SOD PHOSPHATE 4 MG/ML 1 ML VIAL IV ONE; +HYDROmorphone 0.5 MG/0.5 ML SYRINGE IVP PRN; -LIDOCAINE 1% (10MG/ML) FOR IV START INTRADERMA PRN; +ONDANSETRON 4 MG/2 ML VIAL IVP ONE
[2022-11-16] MEDS ORDERED: MIDAZOLAM 2 MG/2 ML VIAL ONE (10:04)
[2022-11-16] MEDS ORDERED: PROPOFOL 10 MG/ML 20 ML VIAL IV ONE (10:04)
[2022-11-16] MEDS ORDERED: LIDOCAINE 2% INJ 20 MG/ML (2 ML VIAL) ONE (10:04)
[2022-11-16] MEDS ORDERED: fentaNYL (PF) 50 MCG/ML 2 ML AMP ONE (10:04)
[2022-11-16] MEDS ORDERED: BUPIVACAINE (PF) 0.25% 10 ML VIAL SQ ONE ×2 (10:23→10:40)
[2022-11-16] MEDS ORDERED: HYDROmorphone 0.5 MG/0.5 ML SYRINGE IVP ONE ×3 (11:07→11:43)
--- NOTE | 2022-11-16 11:08 | P.OP ---
Date of Procedure: 11/16/22 Preoperative Diagnosis: Internal derangement right knee Postoperative Diagnosis: 1. Tear medial and lateral meniscus right knee 2. Grade 4 chondromalacia medial femoral condyle right knee 3. Reactive synovitis medial, lateral and suprapatellar compartments right knee Procedure(s) Performed: 1. Arthroscopic partial medial and lateral meniscectomy right knee 2. Arthroscopic microfracture medial femoral condyle right knee 3. Arthroscopic partial synovectomy medial, lateral and patellar compartments right knee 4. Arthroscopic chondroplasty medial femoral condyle Anesthesia: ALEJANDRA, local Surgeon: Jabier Richards Estimated Blood Loss (ml): 5 Pathology: none sent Condition: stable Disposition: PACU Indications for Procedure: 57-year-old patient seen with progressive right knee pain. After having treatment options discussed, she elected to proceed with arthroscopy. Operative Findings: see description of procedure Description of Procedure: Patient was taken to the operative suite. Patient underwent a Gen. anesthetic by the department of anesthesia. Patient was given preoperative antibiotics. The right lower extremity was placed in a well-padded arthroscopic leg carpenter. The right leg was prepped and draped in the normal sterile orthopedic fashion. A lateral parapatellar and suprapatellar incision was made. Trochars were inserted. Arthroscopy was initiated. Suprapatellar pouch revealed diffuse thick reactive synovitis. The patellofemoral joint appeared to articulate congruently. There was grade 2 chondromalacia of the patella with no osteochondral tears present. The scope was guided into the medial gutter. The scope was then guided into the medial compartment. A medial parapatellar incision was made. Trocar inserted followed by probe. There was a radial tear involving the posterior horn medial meniscus. There was an area of grade 2/3 chondromalacia medial femoral condyle with osteochondral flap tears present. There was thick reactive synovitis anteriorly. I performed a partial medial meniscectomy getting down to stable meniscal tissue. I performed a chondroplasty of the medial femoral condyle getting down to stable osteochondral tissue. I performed a partial synovectomy decompressing the reactive synovitis. I did note an area of exposed bone along the medial femoral condyle measuring proximal 1 cm. I introduced a microfracture awl and I performed a microfracture to the area of exposed bone penetrating the bone with resultant bleeding at the microfracture site. I now probed the residual meniscus and it was stable. The osteochondral surface was stable. There was good decompression of the synovitis. Scope and probe were then guided into the intercondylar notch. Cruciates were identified, probed and found to be stable. The scope and probe were then guided into lateral compartment. There was a complex tear involving the posterior horn and midbody of the lateral meniscus. There were grade 2/3 chondromalacia changes of lateral tibial plateau and grade 1 chondromalacia changes of the lateral femoral condyle without significant tears. There was thick reactive synovitis anteriorly. I performed a partial lateral meniscectomy getting down to stable meniscal tissue. I performed a partial synovectomy decompressing reactive synovitis. The residual meniscus was found to be stable. There was good decompression of the synovitis. The scope was in guided back into the suprapatellar compartment. I introduced a motorized shaver into the suprapatellar compartment. I debrided some piecemeal fragments of meniscus that I encountered. I performed a partial synovectomy. The shaver was removed. There was good decompression of the synovitis. I took one more look around the entire knee, no residual debris. Instruments were now removed from the joint. The joint was infiltrated with .25% Marcaine. Steri-Strips were applied to the portal sites. Sterile dressings were applied. The patient was placed into a ARIN hose. No tourniquet was utilized. The patient was awakened, transferred to a bed and taken to recovery stable satisfactory condition.
[2022-11-16 11:09] VITALS: TEMP 96.8
[2022-11-16] MEDS ORDERED: LACTATED RINGERS 1,000 ML IV ONE (11:55)
[2022-11-16 12:33] VITALS: BP 127/68; PULSE 67; RESP 16
== END 2022-11-16 12:45 | disposition home or self-care (01) ==
LOC: OR 08:56
PROVIDERS: ATTEND Orthopaedic Surgery
DX: S83.241A Other tear of medial meniscus, current injury, right knee, initial encounter (principal); S83.281A Other tear of lateral meniscus, current injury, right knee, initial encounter; M94.261 Chondromalacia, right knee; M65.861 Other synovitis and tenosynovitis, right lower leg; M25.461 Effusion, right knee; M17.11 Unilateral primary osteoarthritis, right knee; Z79.899 Other long term (current) drug therapy; X58.XXXA Exposure to other specified factors, initial encounter
CPT/HCPCS: 29880; 29879; J2250; J1100; J2405; J0690; J3010; J2704; J1170; J2001; J0665

== ENCOUNTER → 2023-03-01 | Outpatient (CLI) | payer OTHER ==
--- NOTE | 2023-03-07 11:11 | MR ---
EXAMINATION TYPE: MR cervical spine wo con DATE OF EXAM: 03/01/2023 COMPARISON: CT 04/20/2022 HISTORY: 58-year-old female Neck pain, BUE radiculopathy. TECHNIQUE: Multiplanar, multisequence images of the cervical spine were acquired without contrast. FINDINGS: Mild to moderate mucosal thickening throughout the visualized paranasal sinuses. No craniocervical junction abnormality, predental space widening, or prevertebral soft tissue swellin g. Straightening of the normal cervical lordosis. Alignment is maintained. Scattered heterogeneous marrow signal including fatty Modic type II endplate change. No suspicious gil ne marrow placement. Moderate disc/endplate degenerative change especially C4-C7 levels with desiccated and narrowed disks and small discussed complexes. Mild ligamentum flavum thickening and scattered facet/uncovertebral joint arthropathy is also present . Changes result in mild narrowing of the spinal canal at C4-C5, C5-C6, and C6-7. No large focal hernia tion or significant spinal canal stenosis. At C4-C5, there changes result in moderate right and mild left neuroforaminal stenosis. At C5-C6, there is moderate bilateral neuroforaminal stenosis. At C6-C7, moderate left and mild right neural foraminal stenosis. Normal course, caliber, and signal intensity of the cervical spinal cord. IMPRESSION: 1. Moderate spondylotic changes especially C4-C7 levels. Changes contribute to mild spinal canal sten oses at these 3 levels. No large focal disc herniation or significant spinal canal stenosis. 2. Additional facet and uncovertebral joint arthropathy contributing to variable mild to moderate taylor roforaminal stenoses as outlined above.
== END | disposition home or self-care (01) ==
LOC: RADMRIMAIN 12:53
PROVIDERS: ATTEND Orthopaedic Surgery
DX: M47.22 Other spondylosis with radiculopathy, cervical region (principal); M48.02 Spinal stenosis, cervical region; M54.2 Cervicalgia
CPT/HCPCS: 72141

== ENCOUNTER → 2023-04-14 | Outpatient (CLI) | payer BC ==
[2023-04-15 02:45] LABS: HCT 39.2 % (37.2-46.3); HGB 12.2 g/dL (12.0-15.0); MCH 30.3 pg (27.0-32.0); MCHC 31.1 g/dL (32.0-37.0); MCV 97.5 FL (80.0-97.0); Mean Platelet Volume 10.7 FL (9.5-12.2); NRBC Per 100 WBC 0 X 10*3/uL (0.00-0.01); Platelet Count 294 X 10*3/uL (140-440); RBC 4.02 X 10*6/uL (4.10-5.20); RDW 13.4 % (11.5-14.5); WBC 6.98 X 10*3/uL (4.50-10.00)
[2023-04-15 03:25] LABS: Blood Urea Nitrogen 15.3 mg/dL (9.0-27.0); Glucose 81 mg/dL (70-110)
[2023-04-15 03:26] LABS: ALT 17 U/L (8-44); AST 24 U/L (13-35); Albumin 4.4 g/dL (3.8-4.9); Albumin/Globulin Ratio 1.69 Ratio (1.60-3.17); Alkaline Phosphatase 65 U/L (41-126); Calcium 9.7 mg/dL (8.7-10.3); Carbon Dioxide 24.9 mmol/L (21.6-31.8); Chloride 105 mmol/L (96-109); Globulin 2.6 g/dL (1.6-3.3); Potassium 4.5 mmol/L (3.5-5.5); Sodium 142 mmol/L (135-145); Total Bilirubin <0.2 mg/dL (0.3-1.2)
[2023-04-15 03:48] LABS: INR 0.93 sec (0.93-1.11); Prothrombin Time 10.1 sec (9.9-11.9)
== END | disposition home or self-care (01) ==
LOC: LABPAT 15:16
PROVIDERS: ATTEND Orthopaedic Surgery
DX: Z01.812 Encounter for preprocedural laboratory examination (principal); M47.22 Other spondylosis with radiculopathy, cervical region; M48.02 Spinal stenosis, cervical region; M50.20 Other cervical disc displacement, unspecified cervical region; Z22.322 Carrier or suspected carrier of Methicillin resistant Staphylococcus aureus
CPT/HCPCS: 36415; 80053; 82306; 85027; 85610; 86850; 86900; 86901; 87070

== ENCOUNTER 2023-04-24 08:58 | Day surgery (SDC) | payer BC ==
--- NOTE | 2023-04-23 10:41 | P.HPOR ---
History of Present Illness H&P Date: 04/12/23 .D:Date: 04/12/23 : 09:36am .T:Title: [facility] History and Physical Date of :[birth year] [id number]: YUVAL Age: 58 year Height: 5'4" Weight: 155 lbs BMI: 26.61 kg/m2 Occupation: [employer] VAS: 6 Hand:Right IMPRESSION: It was my pleasure to have seen and examined [place]. I reviewed the patient's clinical syndrome, physical findings, and imaging studies during the appointment today. It is my impression that the patient has a diagnosis of. 1. C6-7 herniated nucleus pulposus 2. C1-2 herniated nucleus pulposus 3. Bilateral upper extremity radiculopathy I outlined the natural course history without intervention and various interventional options. PLAN: Based on my findings I suggest the following course of action: -The patient was previously scheduled for surgical intervention in the form of a C4-7 ACDF at her previous office visit on 01/18/2023. She elects to continue with te procedure at that time. However, if her symptoms improve she may cancel the procedure if needed. The patient verbally understands all risks, benefits, and alternatives to the procedure. - Ambulate daily - Take medications as directed - Ice and rest for pain and swelling control. Spine Surgery Risk Review Ms. Torres is presenting for evaluation of neck and bilateral upper extremity pain, bilateral upper extremity numbness, tingling, and weakness. It was my pleasure to have seen and examined Ms. Torres. In our visit today we have had a chance to go over subjective complaints, physical examination findings and treatments including the natural course history without intervention and various interventional options. The patients imaging demonstrates: [facility] of CervicalSpine:IMages reviewed with pt. C1-2 shows HNP that is moderate in size without canal stenosis. There is more severe degeneration noted C4-5, C5-6 and C6-7. C6-7 has large HNP causing severe stenosis. C4-6 has degenerative HNP causing moderate to severe central and b/l foraminal stenosis. No fractures noted. C0-1 AND C1-2 are stable at this time. No lesions noted. [facility]: - Reviewed with the patient today. IMPRESSION: Multilevel posterior disc bulging and herniation as above that is more severe at C2-3 and C6-7. No evidence of any significant spinal stenosis. No fracture. CT scan completed at [facility] from04/20/2022 of CervicalSpine: - Reviewed with the patient today. images review the patient demonstrates cervical spondylosis from C3 to C6 with the worst of this being a C4 5 C5 6. There are anterior osteophytes noted as well as posterior osteophytes. C1 2 and a simple cervical joints appear stable. There is stenosis related to these findings at these levels. There is flattening normal cervical lordosis. No other fractures or dislocations noted XRay Cervical multiview (Lateral, Flexion, Extension, AP, Oblique) 5 views taken at [facility] on 03/02/22: - Reviewed with the patient today. Multilevel spondylitic and degenerative changes. Disc collapse C4-C5, C5-C6 with anterior osteophyte formations. Vertebral body heights are preserved. No subluxation through flexion and extension films. No acute osseous abnormalities. On physical exam, Ms. Torres demonstrates: A continued ache-like, burning pain throughout the neck that radiates down into the bilateral upper extremities. She states her bilateral arm pain is associated with numbness, tingling, and weakness. She states the numbness is most severe throughout the bilateral hand. She reports worsening headaches. The patient states her symptoms are exacerbated by all activity. She reports experiencing severe sleep disturbances related to her ongoing pain and associated symptoms. I have explained to the patient that as their condition progresses it will cause further neurological deficits and eventual paralysis. Based on the patients imaging, physical exam, and the rapid progression and disabling nature of their symptoms, at this time I recommend surgery in the form of a: C4-7 ACDF. I discussed the risk and benefits of this procedure at length with Ms. Torres. The patient agreed to considered pursuing the procedure abovementioned. Prior to surgery, she should follow up with her PCP for clearance. Questions were invited and answered, and the patient wishes to proceed as outlined below. Currently, I am recommendin.C4-7 Anterior Cervical Discectomy and fusion 2.Review of surgical risks and benefits as well as an educational packet on the proposed surgical procedure. Risks: All surgical procedures come with inherent risks, including those related to positioning, anesthesia, intraoperative findings, and postoperative complications. It is important to understand that surgery does not come with any guarantee of a successful outcome as complications and adverse events are always possible. The patient was given a handout in office today discussing the surgical procedure and risks associated with the intervention, both of which were discussed with the patient. These risks include but are not limited to the following: * Experiencing same, different or even worse symptoms in back, neck, arms, or legs compared to before surgery. Requiring further surgery or other forms of treatment presently or at some time in the future at same or other levels of the intended spine surgery. On an extreme but fortunately relatively rare basis severe complication such as blindness, stroke, heart attack, temporary and/or permanent nerve injury, paralysis, coma, or may occur, sometimes without known explanation. Surgical complications may include but are not limited to risk of infection, fluid accumulation in the surgical dissection site, including a seroma or hematoma, that requires additional surgery, wound drainage, bleeding, new numbness or weakness, vision changes/loss, spinal fluid leakage, non-healing and/or infected incision, headaches, difficulty or inability to swallow, hoarseness, hemopneumothorax, pneumothorax, impotence, retrograde ejaculation, vaginal dryness; injury to nerves, spinal cord, blood vessels, lymphatics or other vital organs (i.e., bowel injury, injury to the great vessels); heterotopic bone formation; complications related to the hardware such as screws, rods, cages including misplaced hardware, device failure, instrumentation at the wrong spine level, hardware fracture/breakage, or hardware loosening; vertebral failure of the spinal column above or below the newly placed hardware; retained surgical instrumentations or devices and the need for further surgery. * Medical risks of the planned spine surgery include but are not limited to generalized Infections to the whole body or local areas outside of the surgical site (sepsis), heart attack, bleeding, anaphylaxis, meningitis, seizure, epilepsy, hearing loss, burn [place], laceration of the head or other areas of the body, bruising, hypersensitivity of the skin, bladder over distension; allergic reaction; shoulder injury related to positioning; fat, blood and air clots to other areas of the body like heart, lungs, brain; failure of internal organs such as lungs, kidneys, liver and excessive blee ding. If blood transfusions are necessary, note that transfusions may cause intolerance reactions such as anaphylaxis or other complex reactions. Despite best efforts, the results of spine surgery might not heal in terms of bone, soft tissues such as skin, fascia, ligaments, and joints. Additionally, in order to achieve best possible results, spine surgery may be carried out beyond the initially planned levels and involve decompression, fusion including insertion of hardware at levels other than the original intended area of surgical interest change some portions of the procedure in order to ensure the best possible outcomes. With spine surgery and spinal fusion, there are different off label uses of instrumentation (devices, implants and hardware) as well as biological substances (bone morphogenic proteins, demineralized bone matrix) as well as using extra bone from allograft sources (i.e. cadaver bone) or autograft (iliac crest bone, ribs, or the spine itself). The patient has been given information about these practices and their inherent risks and benefits. [facility] is an educational center that serves as a training facility for neurosurgical and orthopedic [employer]TE[employer] SENIOR MANAGER and Nursing students. Physician assistants are medically trained surgical providers who function in the outpatient, inpatient, and operating room setting under the direct supervision of the attending surgeon. [facility] has multiple operating rooms with single and overlapping rooms running daily. They currently function under the required guidelines as produced by the [facility] Finance Committee with regards to the overlapping rooms and will continue to comply with changes to this policy as they occur. The requirements include and are complied with as follows: (1) the critical portions of the overlapping rooms will not occur at the same time, (2) the attending physician will be physically present during the critical portions of the procedure and immediately available during the entire case, and (3) a back-up attending is designated should the primary attending not be immediately available. The patient has had a chance to review all the listed information, has been given print outs detailing this information, and has had all his/her questions answered to their satisfaction. It was my pleasure to have seen and examined Ms. Torres. In our visit today we have had a chance to go over my understanding of our patient's current condition, the natural course history without intervention and various interventional options. Questions were invited and answered, and the patient wishes to proceed as outlined above. I have seen and examined the patient for 25 minutes and we have spent more than 50% of the time in repeat and detailed counseling about the patient's condition, its natural course history with out and as much as can be predicted with surgery and re-review of various surgical treatment options. In conclusion, Ms. Torres requested we proceed with the above suggested surgery and are willing to accept risks and limitations of the suggested surgery as nature of the disease process and our best attempts at treatment for the condition. Thank you again for allowing us to be part of your patient's care. Please don't hesitate to contact me if you have any further questions. Follow-up: Post procedure Patient Education: (Informational booklet, instructions, etc) given at today's appointment: Yes .ED:Patient Education: Y Medications Reviewed: YES In our visit today Ms. Torres and I have had a chance to go over my understanding of the patient's current condition, the natural course history without intervention and various interventional options. Questions were invited and answered, and the patient wishes to proceed as outlined above. I will be sure to keep you updated afterMs. Torres returns here for further follow-up. Thank you again for your referral. Please do not hesitate to contact me if you have any further questions. Signed and authenticated by: [facility] [address] [place] [address] This message is confidential, intended only for the named recipient(s) and may contain information that is privileged or exempt from disclosure under applicable law. If you are not the intended recipient(s), you are notified that the dissemination, distribution or copying of this information is strictly prohibited. If you received this message in error, please notify the sender then delete this message. Patient verbalizes understanding of the information discussed. The above note was initiated by Savanna Harmon, physician recording orthodontic assistant for Dr. Kaiser Talavera. This note has been reviewed by Dr. Talavera, who has made his personal changes and impressions for this document. CC: BILL Ambrosio # SIGNED BY Kaiser Talavera ([facility])04/13/2023 09:30AM # REVISED BY Kaiser Talavera (O)04/18/2023 08:50AM Past Medical History Past Medical History: Musculoskeletal Disorder Additional Past Medical History / Comment(s): Degenerative Disc Disease, bulging discs pain, numbness and tingling in bilateral arms. History of Any Multi-Drug Resistant Organisms: None Reported Past Surgical History: Cholecystectomy, Orthopedic Surgery Additional Past Surgical History / Comment(s): Partial hysterectomy, laparoscopy X4 for endometriosis, right knee arthroscopy. Past Anesthesia/Blood Transfusion Reactions: No Reported Reaction Smoking Status: Never smoker - Past Family History Mother Family Medical History: No Reported History Medications and Allergies Home Medications Medication Instructions Recorded Confirmed Type Gabapentin 300 mg PO TID 09/30/21 04/20/23 History Ibuprofen [Motrin] 800 mg PO HS PRN 07/01/22 04/20/23 History methocarbamoL [Methocarbamol] 750 mg PO TID 11/10/22 04/20/23 History Allergies Allergy/AdvReac Type Severity Reaction Status Date / Time gadobutrol [From Gadavist] AdvReac Intermediate Nausea & Verified 04/20/23 14:32 Vomiting Gadolinium-Containing AdvReac Intermediate Nausea & Verified 04/20/23 14:32 Contrast Medi Vomiting Physical Examination Osteopathic Statement: *. No significant issues noted on an osteopathic structural exam other than those noted in the History and Physical/Consult. Assessment and Plan Assessment: All Active Problems Muscle weakness of upper extremity (Acute) Neck pain (Acute) Cervical spondylosis with myelopathy and radiculopathy (Acute) Herniation of cervical intervertebral disc with radiculopathy (Acute)
[~2023-04-24 08:58] MED LIST changes: -DEXAMETHASONE SOD PHOSPHATE 4 MG/ML 1 ML VIAL IV ONE; -HYDROmorphone 0.5 MG/0.5 ML SYRINGE IVP PRN; -LACTATED RINGERS 1,000 ML IV SCH; -ONDANSETRON 4 MG/2 ML VIAL IVP ONE; +TRANEXAMIC 1,000 MG/100ML-NACL 1,000 MG in SALINE 1 100ML.BAG IVPB PRN
[2023-04-24] MEDS: ONDANSETRON 4 MG/2 ML VIAL IVP PRN (09:50)
[2023-04-24] MEDS: ACETAMINOPHEN TAB 500 MG TAB PO PRN (09:50)
[2023-04-24] MEDS: GABAPENTIN 300 MG CAP PO PRN (09:50)
[2023-04-24] MEDS: MIDAZOLAM 2 MG/2 ML VIAL IVP ONE (09:55)
[2023-04-24] MEDS: LACTATED RINGERS 1,000 ML IV ONE ×3 (10:25→13:15)
[2023-04-24] MEDS ORDERED: fentaNYL (PF) 50 MCG/ML 2 ML AMP ONE (12:02)
[2023-04-24] MEDS ORDERED: KETAMINE HCL IN 0.9 % NACL 50 MG/5 ML SYRINGE ONE (12:02)
[2023-04-24] MEDS ORDERED: LIDOCAINE 1% INJ 10MG/ML (20 ML MDV) ONE (12:02)
[2023-04-24] MEDS ORDERED: ROCURONIUM 10 MG/ML (5 ML VIAL) IV ONE (12:02)
[2023-04-24] MEDS ORDERED: PROPOFOL 10 MG/ML 20 ML VIAL IV ONE (12:02)
[2023-04-24] MEDS ORDERED: SUCCINYLCHOLINE CHLORIDE 200 MG/10 ML VIAL IV ONE (12:02)
[2023-04-24] MEDS ORDERED: PHENYLEPHRINE 10 MG/ML VIAL ONE (12:02)
[2023-04-24] MEDS ORDERED: GLYCOPYRROLATE 0.2 MG/ML 2 ML VIAL ONE (12:02)
[2023-04-24] MEDS ORDERED: HYDROmorphone (PF) 1 MG/ML ONE (12:02)
[2023-04-24] MEDS ORDERED: TRANEXAMIC 1,000 MG/100ML-NACL PREMIX BAG ONE (12:02)
[2023-04-24] MEDS ORDERED: MIDAZOLAM 2 MG/2 ML VIAL ONE (12:02)
[2023-04-24] MEDS ORDERED: NEOSTIGMINE 1 MG/ML 10 ML VIAL ONE (12:02)
[2023-04-24] MEDS: THROMBIN (BOVINE) 5,000 UNIT VIAL TOPICAL ONE (12:38)
[2023-04-24] MEDS ORDERED: HYDROcodone/APAP 5-325MG 1 EACH TAB PO PRN (13:46)
[2023-04-24] MEDS ORDERED: MAGNESIUM HYDROXIDE 2,400 MG/30 ML CUP PO PRN (13:46)
[2023-04-24] MEDS ORDERED: HYDROmorphone 0.5 MG/0.5 ML SYRINGE IVP PRN (13:46)
[2023-04-24] MEDS ORDERED: SENNOSIDES-DOCUSATE SODIUM 1 EACH TAB PO PRN (13:46)
[2023-04-24] MEDS: HYDROmorphone 0.5 MG/0.5 ML SYRINGE IVP ONE ×2 (14:18→14:54)
--- NOTE | 2023-04-24 14:23 | XR ---
EXAMINATION TYPE: XR cervical spine limited, FL guidance operating room Intraoperative/procedural flu oroscopic services were provided. Total fluoroscopy time is 14 seconds with a total of 4 submitted im ages to PACS. Please see the operative/procedural note for further details. DAP: 0.1 170 Gycm2
[2023-04-24] MEDS: ACETAMINOPHEN TAB 325 MG TAB PO SCH (17:02)
[2023-04-24] MEDS: HYDROcodone/APAP 10-325MG 1 EACH TAB PO PRN (17:02)
[2023-04-24] MEDS: GABAPENTIN 300 MG CAP PO SCH (17:03)
--- NOTE | 2023-04-24 17:49 | CT ---
EXAMINATION TYPE: CT cervical spine wo con CT DLP: 263 mGycm, Automated exposure control for dose reduction was used. DATE OF EXAM: 04/24/2023 4:50 PM COMPARISON: 04/24/2023, MRI 03/01/2023. CLINICAL INDICATION:Female, 58 years old with history of s/p C4-C6 ACDF; PHH, s/p C4-C6 ACDF TECHNIQUE: Axial CT images from the skull base to the inferior aspect of T2 we obtained without intra venous contrast. Coronal and sagittal reformatted images were also reviewed. Contrast used: mL of , (if blank None) Oral contrast used: (if blank None) FINDINGS: Fracture: None. Osseous structures: Postsurgical changes to the cervical spine with anterior fixation at C4-C5 and C5 -C6. Hardware appears intact. Gas along the surgical bed is present. Drainage tubing enters the surgi prasanna bed and is positioned anterior to the spine. Mild degeneration changes are mild osteophyte format ion disc space narrowing. Vertebral alignment: Alignment within normal limits. Spinal canal/Neural Foramina: No evidence of significant spinal canal narrowing. No evidence for sign ificant neural foraminal stenosis. Neck soft tissues: Prevertebral soft tissues are within normal limits. Other: The airway is patent. The lung apices are clear. IMPRESSION: 1. Postsurgical changes without evidence for acute postop complication. 2. Mild multilevel degenerative disc disease.
[2023-04-24] MEDS: HYDROmorphone 1 MG/ML 1 ML SYRINGE IVP PRN (19:47)
[2023-04-24] MEDS: CYCLOBENZAPRINE 5 MG TAB PO PRN (19:47)
--- NOTE | 2023-04-24 19:53 | P.OP ---
Date of Procedure: 04/24/23 Preoperative Diagnosis: 1. C4-7 SPONDYLOSIS WITH STENOSIS 2. 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 UE WEAKNESS 4. UE RADICULOPATHY 5. NECK PAIN Postoperative Diagnosis: 1. C4-7 SPONDYLOSIS WITH STENOSIS 2. 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 UE WEAKNESS 4. UE RADICULOPATHY 5. NECK PAIN Procedure(s) Performed: 1. C4-5 ANTERIOR CERVICAL ARTHRODESIS 2. C5-6 ANTERIOR CERVICAL ARTHRODESIS 3. ANTERIOR INSTRUMENTATION C4-6 4. INSERTION OF BIOMECHANICAL DEVICE C4-5 AND C5-6 USE OF IONM USE OF IO MICROSCOPE CODES: 95642, 37360, 09719, [id number] Implants: 4 ONEAL 8MM 7 DEG CAGES X2 MAGNATOS, AUTOGRAFT Anesthesia: GETA Surgeon: Kaiser Talavera Canvas Baster #1: Isaiah Wetzel (WAS PRESENT AND ASSISTED WITH ALL ASPECTS OF THE CASE FROM POSITION TO CLOSURE) Estimated Blood Loss (ml): 25 IV fluids (ml): 1,000 Urine output (ml): 0 Pathology: none sent Condition: stable Disposition: PACU Indications for Procedure: Ms. Torres is presenting for evaluation of neck and bilateral upper extremity pain, bilateral upper extremity numbness, tingling, and weakness. It was my pleasure to have seen and examined Ms. Torres. In our visit today we have had a chance to go over subjective complaints, physical examination findings and treatments including the natural course history without intervention and various interventional options. The patients imaging demonstrates: [facility] of CervicalSpine:IMages reviewed with pt. C1-2 shows HNP that is moderate in size without canal stenosis. There is more severe degeneration noted C4-5, C5-6 and C6-7. C6-7 has large HNP causing severe stenosis. C4-6 has degenerative HNP causing moderate to severe central and b/l foraminal stenosis. No fractures noted. C0-1 AND C1-2 are stable at this time. No lesions noted. [facility]: - Reviewed with the patient today. IMPRESSION: Multilevel posterior disc bulging and herniation as above that is more severe at C2-3 and C6-7. No evidence of any significant spinal stenosis. No fracture. CT scan completed at [facility] from04/20/2022 of CervicalSpine: - Reviewed with the patient today. images review the patient demonstrates cervical spondylosis from C3 to C6 with the worst of this being a C4 5 C5 6. There are anterior osteophytes noted as well as posterior osteophytes. C1 2 and a simple cervical joints appear stable. There is stenosis related to these findings at these levels. There is flattening normal cervical lordosis. No other fractures or dislocations noted XRay Cervical multiview (Lateral, Flexion, Extension, AP, Oblique) 5 views taken at [facility] on 03/02/22: - Reviewed with the patient today. Multilevel spondylitic and degenerative changes. Disc collapse C4-C5, C5-C6 with anterior osteophyte formations. Vertebral body heights are preserved. No subluxation through flexion and extension films. No acute osseous abnormalities. On physical exam, Ms. Torres demonstrates: A continued ache-like, burning pain throughout the neck that radiates down into the bilateral upper extremities. She states her bilateral arm pain is associated with numbness, tingling, and weakness. She states the numbness is most severe throughout the bilateral hand. She reports worsening headaches. The patient states her symptoms are exacerbated by all activity. She reports experiencing severe sleep disturbances related to her ongoing pain and associated symptoms. I have explained to the patient that as their condition progresses it will cause further neurological deficits and eventual paralysis. Based on the patients imaging, physical exam, and the rapid progression and disabling nature of their symptoms, at this time I recommend surgery in the form of a: C4-7 ACDF. I discussed the risk and benefits of this procedure at length with Ms. Torres. The patient agreed to considered pursuing the procedure abovementioned. Prior to surgery, she should follow up with her PCP for clearance. Questions were invited and answered, and the patient wishes to proceed as outlined below. Currently, I am recommendin.C4-6 Anterior Cervical Discectomy and fusion Description of Procedure: C4-6 ACDF The patient was seen and examined in the preoperative area. All preoperative protocols were followed. Informed consent was obtained, risks and benefits of the procedure were discussed at length. Risks including bleeding infection damage to the surrounding tissue and risk of reoperation were discussed with the patient. Risk of anesthesia up to and including was discussed with the patient. These are outlined in the risk review. They were willing to accept these risks and all the risks of surgery. The patient was given a weight-based dose of antibiotics in the form of 2 g Ancef. The patient was seen and evaluated by the anesthesia team who deemed them fit for surgery. The site was marked, the patient was willing to proceed with the procedure. The patient was transferred to the operative suite by the Department of anesthesia. They were then drifted off to sleep by the department anesthesia and GETA was performed. The patient tolerated this well. Oakes catheter was placed by nursing staff, a-traumatically. Once confirmation of lines and ventilation the patient was transferred to a Supine Km table very carefully. All bony prominences including wrists, elbows, axilla, chest, hips, and thighs, and feet were padded very well. Special attention was paid to the genitalia, and these were padded accordingly. SCDs were placed on bilateral lower extremities and were connected. Arms were well padded and placed at their side thumbs up. Once in position, again we confirmed good ventilation capabilities and that lines were running appropriately. The patients Cervical spine was then exposed. 1010s were placed outlining the incision site. Standard alcohol was used to clean the incision site and allowed to dry. C-arm was used to bio-alexandria the patient and confirm level for incision which was marked with a skin marker. Operative briefing was performed with all teams and everyone in agreement to proceed. The patient was then prepped and draped in a normal sterile fashion. Timeout was then performed, and all parties agreed with the procedure to be performed. Transverse skin incision was then made on the right side of the patient's neck 3 cm and dissection taken down to the platysma which was split transversely. Sub platysma flap was made, and an interval identified between SCM and medial structures. Omohyoid was visualized and protected. Blunt dissection taken down to the anterior cervical fascia which was identified. Blunt probe was then placed and lateral image taken which confirmed levels for operation. These levels were then marked with a bovi. Subperiosteal dissection of the longissimu s muscles were then done over these levels identifying uncovertebral joints bilaterally. Retractor was then placed deep to these muscles and held in place with a bed arm. Starting at C5-6, Benson pins were placed into C5 and C6 and gentle distraction taken out over the levels. Nettie rongeur used to remove disc material. Operating microscope brought in for visualization. Complete discectomy performed at this level with curette, rongeur and pituitary. High speed solomon used to remove osteophytes anteriorly and posteriorly until PLL was identified. 6-0 up curette then used to identify the canal and resect the PLL. 2-0 and 3-0 Kerrison used then to remove PLL and disc herniation and performed b/l foraminotomies. Once good decompression was accomplished, meticulous hemostasis was performed. Sizers were then placed under lateral fluoroscopy until the desired height and lordosis. Cage was then selected, packed with autograft and allograft and placed under lateral imaging. Once in good position it was tested and stable. Motors run before and after cage placement were stable. The wound was irrigated, and autograft placed lateral to the cage anteriorly for fusion. Benson pin was then removed from C6 and placed into C4. Gentle distraction taken out over C4-5 now. Complete discectomy done at C4-5 as described including decompression, b/l foraminotomies and PLL resection. Burring of endplates was minimal, osteophytes removed as described. Spacers were then sized and placed under lateral imaging. Cage selected, packed with graft and placed under lateral images. Once in position, meticulous hemostasis performed, and motors remained stable before and after cage placement. AP image confirmed good placement of cages. Wound was irrigated. Anterior instrumentation was then done with screws which were drilled and measured and then placed into each vertebral body. All locking mechanisms were set, and all screws had good purchase. Final AP and lateral images taken confirmed good placement of hardware and good reduction and sikhism of height. The wound was then irrigated copiously with NSS. Surgicel placed deep in the wound. A deep drain placed out a separate incision and sewed into place. Layered closure then performed with 3-0 Vicryl in the platysma and subQ tissue. 4-0 Strata fix in the subcuticular tissue. The wound was then cleaned, and dried and skin glue placed. Once glue dried an Opifoam was placed. The patient was then transferred back to their hospital bed a-traumatically. The drain continued to hold suction. They were placed in a soft collar. They were then awakened by the department of anesthesia having tolerated the procedure well without complications.
[2023-04-24] MEDS ORDERED: GABAPENTIN 300 MG CAP PO SCH (22:00)
[2023-04-24 22:02] VITALS: RESP 18
[2023-04-24] MEDS: methocarbamoL 750 MG TAB PO SCH (22:02)
--- NOTE | 2023-04-25 05:51 | P.CONS ---
History of Present Illness - Reason for Consult Consult date: 04/24/23 Medical management Requesting physician: Kaiser Talavera - Chief Complaint C4-7 ACDF - History of Present Illness HISTORY OF PRESENT ILLNESS: 58-year-old female one of our office patient with past medical history of chronic lower back pain, osteoarthritis, history of hyperlipidemia who had earlier in life history of endometriosis and no other major medical problem. 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 She had initially an x-ray of the cervical spine and an MRI showed severe spinal stenosis of the cervical spine worsening in the C4-C7 area. Patient was referred to Dr. Talavera with scheduled for elective surgery for C47 ACDF. Procedure was done today successfully as an anterior approach with a drain was left then draining slight bit of blood. Patient is resting comfortably in bed with no major complication. REVIEW OF SYSTEMS: CONSTITUTIONAL: Well-developed no acute respiratory distress. Cervical spine: There is an anterior approach surgery with dressing in the frontal part of the neck with this drainage tube coming in the middle. EYES: No icterus sclerae, no conjunctivitis. EARS, NOSE, MOUTH, THROAT, and FACE: No sore throat, lymphadenopathy, carotid bruits or deformity. RESPIRATORY: No SOB cough or wheezes. CARDIOVASCULAR: No CP, Palpitation, PND, Orthopnea, or angina. GASTROINTESTINAL: No Abd pain, Nausea or vomiting, no Diarrhea or constipation, No GI Bleed, no distention or masses. GENITOURINARY: Negative for Hematuria or UTI, no kidney stones. INTEGUMENT/BREAST: Negative for any muscular injury with mild osteoarthritis.. HEMATOLOGIC/LYMPHATIC: Negative for bleed or purpura. MUSCULOSKELTAL: Negative for Myalgia or arthralgia. NEURLOGICAL: No LOC, Sz or syncope, blurred vision dizziness or abnormality.. BEHAVIORAL/PSYCH: Negative. ENDOCRINE: Negative. Social history: Patient does not smoke, no alcohol abuse, no illicit drug use. She is and lives with her . Family history: She has 2 children both are living and well, patient had 7 siblings all still living with history of diabetes, CAD and hypertension. Her mother still living at 92 with chronic history of osteoporosis, degenerative arthritis post hip fracture and surgery with chronic history of neuropathy. Her father age 56 from CAD. PHYSICAL EXAMINATION: General Appearance: Alert, cooperative, no distress, appears stated age. Neck HEENT: In hard cervical spine collar with dressing in the midline with slight bruise on it and drainage tube in the middle. Lungs: Clear to auscultation without crackles or wheezes no rhonchi, no deformity. Chest Wall: Chest wall normal expansion with deep inspiration no tenderness and no deformity was found on exam, no costochondral pain or discomfort. Heart: Regular rate and rhythm, S1, S2 normal, no murmur, rub or gallop. Back: Symmetric, no curvature, ROM normal, no CVA tenderness. Abdomen: Soft, non-tender, bowel sounds active all four quadrants, no masses, no organomegaly. Extremities: Extremities normal, atraumatic, no cyanosis or edema. Pulses: 2+ and symmetric. Skin: Skin color, texture, tugor normal, no rashes or lesions. Neurologic: Alert oriented x3 cranial nerves II through XII intact, no motor deficit, no abnormal balance or gait. ASSESSMENT AND PLAN: _Post C4-7 ACDF: Stable hemodynamically, admit patient to the medical floor resume home meds, continue pain management at this point continue to watch patient hemodynamic status carefully. _History of hyperlipidemia: Was on rosuvastatin, she quit medication on last few weeks. _Chronic neuropathy: Most likely the effect of her cervical spine stenosis has been on gabapentin which will be resumed at this point. _Chronic pain syndrome: Was on Robaxin, gabapentin and hydrocodone which resume medication after surgery. _History of mild incontinence: Has been much better so far patient is not on any medication. _DVT prophylaxis: Knee-high ARIN hose and Venodyne boots will be used. _GI prophylaxis: Patient be on Pepcid 20 mg daily. CODE STATUS: Full code. Dr. Talavera thank you much for the consult if I can be any further help to please let me know. Past Medical History Past Medical History: Musculoskeletal Disorder Additional Past Medical History / Comment(s): Degenerative Disc Disease, bulging discs pain, numbness and tingling in bilateral arms. History of Any Multi-Drug Resistant Organisms: None Reported Past Surgical History: Cholecystectomy, Orthopedic Surgery Additional Past Surgical History / Comment(s): Partial hysterectomy, laparoscopy X4 for endometriosis, right knee arthroscopy. Past Anesthesia/Blood Transfusion Reactions: No Reported Reaction Past Psychological History: No Psychological Hx Reported Smoking Status: Never smoker Past Alcohol Use History: Occasional Past Drug Use History: None Reported - Past Family History Mother Family Medical History: No Reported History Medications and Allergies Home Medications Medication Instructions Recorded Confirmed Type Gabapentin 300 mg PO TID 09/30/21 04/20/23 History Ibuprofen [Motrin] 800 mg PO HS PRN 07/01/22 04/20/23 History methocarbamoL [Methocarbamol] 750 mg PO TID 11/10/22 04/20/23 History Allergies Allergy/AdvReac Type Severity Reaction Status Date / Time gadobutrol [From Gadavist] AdvReac Intermediate Nausea & Verified 04/24/23 09:21 Vomiting Gadolinium-Containing AdvReac Intermediate Nausea & Verified 04/24/23 09:21 Contrast Medi Vomiting Physical Exam Vitals: Vital Signs Temp Pulse Pulse Resp BP Pulse Ox 04/24/23 17:06 97.7 F 66 19 144/84 97 04/24/23 16:00 76 16 114/68 98 04/24/23 15:48 69 16 112/73 99 04/24/23 15:33 70 16 113/69 99 04/24/23 15:02 57 L 16 133/78 99 04/24/23 14:44 62 16 129/74 100 04/24/23 14:28 60 16 138/77 100 04/24/23 14:13 69 16 130/76 100 04/24/23 13:57 97.0 F L 69 16 114/67 93 L 04/24/23 09:55 97.0 F L 68 16 121/73 99 Intake and Output 04/24/23 04/24/23 04/24/23 06:59 14:59 22:59 Intake Total 1650 375 Output Total 25 Balance 1625 375 Intake: IV 1650 375 Output: Estimated Blood Loss 25 Other: Weight 72.2 kg 72.2 kg
--- NOTE | 2023-04-25 06:42 | P.PN ---
Subjective Progress Note Date: 04/25/23 Principal diagnosis: 1. C6-7 herniated nucleus pulposus 2. C1-2 herniated nucleus pulposus 3. Bilateral upper extremity radiculopathy Patient seen and examined this point. Patient is resting comfortable in bed. Patient does report that her pain is controlled on current regimen. Surgical incision to the anterior cervical spine, dressing is clean dry and intact with SANDI drain present. Hard cervical collar is intact. Patient states she notices improvement in the bilateral upper extremities since the procedure. Patient is looking forward to working with physical therapy today. No acute concerns at this time. Objective - Vital Signs Vital signs: Vital Signs Temp 98.2 F 04/25/23 01:13 Pulse 81 04/25/23 01:13 Resp 18 04/25/23 01:13 BP 122/77 04/25/23 01:13 Pulse Ox 95 04/25/23 01:13 FiO2 Intake & Output 04/24/23 04/24/23 04/25/23 06:59 18:59 06:59 Intake Total 2265 Output Total 275 Balance 1989 Weight 72.2 kg Intake: IV 2024 Oral 240 Output: Urine 250 Estimated Blood Loss 25 Other: Voiding Method Toilet # Voids 3 - Exam Physical Examination General: The patient is awake and alert, in no acute distress Skin: Skin is warm and dry with no obvious rashes or lesions. Surgical incision to the anterior cervical spine, dressing is intact with SANDI drain present. Eye: Pupils are equal, round and reactive to light, extra-ocular movements are intact; there is normal conjunctiva bilaterally. Neck: The neck is supple, there is mild tenderness around incision, range of motion is limited due to surgical procedure and hard cervical collar intact. Cardiovascular: There is a regular rate and rhythm. No murmur, rub or gallop is appreciated. Respiratory: Lungs are clear to auscultation, respirations are non-labored, breath sounds are equal. Gastrointestinal: Soft, non-distended, non-tender abdomen. Back: There is no tenderness to palpation in the midline, paralumbar, parathoracic or buttocks region. There is no obvious deformity . Musculoskeletal: ROM limited secondary to pain and stiffness from surgical procedure. Muscle strength in all major muscle groups of bilateral upper extremities 4/5, bilateral lower extremities 5/5. Neurological: CN 2-12 intact. There are no obvious motor or sensory deficits. Movement and coordination equal and intact. Sensory exam to light touch intact C5-T1 and intact from L2-S1. Reflexes 2/4 in bilateral upper and lower extremities. Negative Hoffmans, babinski, and clonus signs. Psychiatric: Cooperative, appropriate mood & affect, normal judgment. Assessment and Plan Assessment: Postop day 1: C4-C6 ACDF 1. C6-7 herniated nucleus pulposus 2. C1-2 herniated nucleus pulposus 3. Bilateral upper extremity radiculopathy Plan: -Appreciate natural remedy consultant and team management. -Activity: Ambulate QID, OOB all meals, up and about, limit lifting bending twisting to less than 5 lbs. Use walker or cane if needed for stability. -Daily PT/OT, increase ambulation strength and balance. -Hard cervical collar at all times, may remove for showers. -Pain control: Adequate at this time -Meds: reviewed -GI ppx: senna, Miralax -DC salazar when up and about, bedside commode if needed -DVT PPX: OK to restart Heparin tonight -Hygiene: Shower today. Maintain dressing clean and dry. -Drains: Maintain for now. Continue to monitor and record output q shift. Drain will be removed later today. -Encourage IS 10x/hr -Dispo: Anticipate discharge home later today versus tomorrow with homecare *I reviewed and discussed this case with my attending Dr. Talavera, whom has reviewed this chart and films and is in agreement with assessment and plan of care as outlined above. I have personally seen and examined the patient, performed the documentation and the assessment and plan as written. Number of minutes spent on the visit: 20m.
[2023-04-25 08:10] VITALS: BP 111/70; PULSE 78; TEMP 98.3
--- NOTE | 2023-04-25 08:15 | P.PN ---
Subjective Progress Note Date: 04/25/23 HISTORY OF PRESENT ILLNESS: 58-year-old female one of our office patient with past medical history of chronic lower back pain, osteoarthritis, history of hyperlipidemia who had earlier in life history of endometriosis and no other major medical problem. 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 She had initially an x-ray of the cervical spine and an MRI showed severe spinal stenosis of the cervical spine worsening in the C4-C7 area. Patient was referred to Dr. Talavera with scheduled for elective surgery for C47 ACDF. Procedure was done today successfully as an anterior approach with a drain was left then draining slight bit of blood. Patient is resting comfortably in bed with no major complication. 04/25/2023: She slept good through the night, she had slight back pain had to use some Dilaudid which causes more nausea, patient does not have any Oakes catheter she is able to void on her own. Switch pain meds to oral as of today. Incision site looks good the drainage tube still having slight drainage only. The patient will start PT today hopefully her balance and gait will be good. If she is doing very well there is a slight possibility she might be discharged home today. REVIEW OF SYSTEMS: CONSTITUTIONAL: Well-developed no acute respiratory distress. Cervical spine: There is an anterior approach surgery with dressing in the frontal part of the neck with this drainage tube coming in the middle. EYES: No icterus sclerae, no conjunctivitis. EARS, NOSE, MOUTH, THROAT, and FACE: No sore throat, lymphadenopathy, carotid bruits or deformity. RESPIRATORY: No SOB cough or wheezes. CARDIOVASCULAR: No CP, Palpitation, PND, Orthopnea, or angina. GASTROINTESTINAL: No Abd pain, Nausea or vomiting, no Diarrhea or constipation, No GI Bleed, no distention or masses. GENITOURINARY: Negative for Hematuria or UTI, no kidney stones. INTEGUMENT/BREAST: Negative for any muscular injury with mild osteoarthritis.. HEMATOLOGIC/LYMPHATIC: Negative for bleed or purpura. MUSCULOSKELTAL: Negative for Myalgia or arthralgia. NEURLOGICAL: No LOC, Sz or syncope, blurred vision dizziness or abnormality.. BEHAVIORAL/PSYCH: Negative. ENDOCRINE: Negative. PHYSICAL EXAMINATION: General Appearance: Alert, cooperative, no distress, appears stated age. Neck HEENT: In hard cervical spine collar with dressing in the midline with slight bruise on it and drainage tube in the middle. Lungs: Clear to auscultation without crackles or wheezes no rhonchi, no deformity. Chest Wall: Chest wall normal expansion with deep inspiration no tenderness and no deformity was found on exam, no costochondral pain or discomfort. Heart: Regular rate and rhythm, S1, S2 normal, no murmur, rub or gallop. Back: Symmetric, no curvature, ROM normal, no CVA tenderness. Abdomen: Soft, non-tender, bowel sounds active all four quadrants, no masses, no organomegaly. Extremities: Extremities normal, atraumatic, no cyanosis or edema. Pulses: 2+ and symmetric. Skin: Skin color, texture, tugor normal, no rashes or lesions. Neurologic: Alert oriented x3 cranial nerves II through XII intact, no motor deficit, no abnormal balance or gait. ASSESSMENT AND PLAN: _Post C4-7 ACDF: Stable hemodynamically, admit patient to the medical floor resume home meds, switch to pain meds orally. _History of hyperlipidemia: Was on rosuvastatin, which will be addressed again as an outpatient in the office. _Chronic neuropathy: Most likely the effect of her cervical spine stenosis has been on gabapentin if having more problem with pain management gabapentin can be increased to a higher dose eventually. _Chronic pain syndrome: Was on Robaxin, gabapentin and hydrocodone which resume medication after surgery. _History of mild incontinence: Has been much better so far patient is not on any medication. Discharge planning: If pain is well-controlled and patient is doing well with physical therapy there is a slight possibility she might be discharged home today. Objective - Vital Signs Vital signs: Vital Signs Temp 98.2 F 04/25/23 01:13 Pulse 81 04/25/23 01:13 Resp 18 04/25/23 01:13 BP 122/77 04/25/23 01:13 Pulse Ox 95 04/25/23 01:13 FiO2 Intake & Output 04/24/23 04/24/23 04/25/23 06:59 18:59 06:59 Intake Total 2265 Output Total 275 Balance 1989 Weight 72.2 kg Intake: IV 2024 Oral 240 Output: Urine 250 Estimated Blood Loss 25 Other: Voiding Method Toilet
[2023-04-25 08:47] LABS: Basophils # (A) 0.06 X 10*3/uL (0.00-0.10); Basophils % (A) 0.7 %; Eosinophils # (A) 0.06 X 10*3/uL (0.04-0.35); Eosinophils % (A) 0.7 %; HCT 33.4 % (37.2-46.3); HGB 10.8 g/dL (12.0-15.0); Lymphocytes # (A) 1.72 X 10*3/uL (0.90-5.00); Lymphocytes % (A) 19.2 %; MCH 30.4 pg (27.0-32.0); MCHC 32.3 g/dL (32.0-37.0); MCV 94.1 FL (80.0-97.0); Monocytes # (A) 0.49 X 10*3/uL (0.20-1.00); Monocytes % (A) 5.5 %; NRBC Per 100 WBC 0 X 10*3/uL (0.00-0.01); Neutrophils # (A) 6.59 X 10*3/uL (1.80-7.70); Neutrophils % (A) 73.6 %; Platelet Count 227 X 10*3/uL (140-440); RBC 3.55 X 10*6/uL (4.10-5.20); RDW 13.2 % (11.5-14.5); WBC 8.95 X 10*3/uL (4.50-10.00)
--- NOTE | 2023-04-25 10:11 | P.DS ---
Providers Date of admission: 04/24/23 Expected date of discharge: 04/25/23 Attending physician: Kaiser Talavera DO Consults: 04/24/23 13:46 Consult Physician Routine Consulting Provider: Tato Ortega Reason/Comments: medical management s/p C4-C6 ACDF Do you want consulting provider notified?: Yes Primary care physician: Tato Ortega [facility] Hospital Course: Hospital Course: The patient was evaluated preoperatively and found to have the diagnosis of cervical spondylosis. They underwent appropriate preoperative care and were willing to undergo the intended procedure. They underwent a successful C4-C6 ACDF, were recovered appropriately and sent to the floor. While on the floor they worked with physical therapy, occupational therapy and nursing to enhance their recovery experience. Their pain was well controlled through their stay and they were started on appropriate medications, DVT ppx modalities, activity and dietary needs. Daily labs were monitored closely, and transfusions were only used when necessary. Medicine as well as other consulting services have made their input and have helped with our team approach and multidisciplinary care. PT milestones have been met and passed and they have made the recommendation of home for this patient and treating providers agree with this care path. The patient will be discharged home with appropriate medications, instructions and follow-up information and in stable condition. Patient Condition at Discharge: Good Plan - Discharge Summary Discharge Rx Participant: No New Discharge Prescriptions: New cefaDROXiL [Duricef] 500 mg PO Q12HR #10 cap Gabapentin 300 mg PO TID #90 cap HYDROcodone/APAP 10-325MG [[place] 10-325] 1 tab PO Q4-6H PRN #42 tab PRN Reason: Pain Sennosides/Docusate Sodium [Senna Plus 8.6-50 mg Tablet] 1 each PO DAILY PRN #20 tablet PRN Reason: Constipation No Action methocarbamoL [Methocarbamol] 750 mg PO TID Gabapentin 300 mg PO TID Ibuprofen [Motrin] 800 mg PO HS PRN PRN Reason: Pain Discharge Medication List Gabapentin 300 mg PO TID 09/30/21 [History] Ibuprofen [Motrin] 800 mg PO HS PRN 07/01/22 [History] methocarbamoL [Methocarbamol] 750 mg PO TID 11/10/22 [History] Gabapentin 300 mg PO TID #90 cap 04/25/23 [Rx] HYDROcodone/APAP 10-325MG [[place] 10-325] 1 tab PO Q4-6H PRN #42 tab 04/25/23 [Rx] Sennosides/Docusate Sodium [Senna Plus 8.6-50 mg Tablet] 1 each PO DAILY PRN #20 tablet 04/25/23 [Rx] cefaDROXiL [Duricef] 500 mg PO Q12HR #10 cap 04/25/23 [Rx] Follow up Appointment(s)/Referral(s): Tato Ortega MD [Primary Care Provider] - 1 Week Nydia Nina NPC [Nurse Practitioner] - (Patient has follow up appt already made) Activity/Diet/Wound Care/Special Instructions: Spine Discharge and Recovery Instructions Date of Surgery: 04/24/2023 Diagnosis: Cervical spondylosis Procedure: C4-C6 ACDF Medications: See medication list All medication refills should be obtained through your primary care doctor or your clinic spine surgeon. Please discuss prescription refills at your follow up appointment. Do not call the hospital for medication refills. Activity: Encourage ambulation with assist of walker, Up and about 6-8x daily PT/OT daily work on balance, strength and mobility Up in chair with all meals Shower daily Brace: Use brace when up and about, do not wear in bed or shower Dressing: Leave your dressing in place for a total of 3 days post operatively. Then you may remove your dressing and leave open to air. Keep the area clean and if not able to keep area clean, then cover with sterile gauze and tape. Showering: You may shower 3 days after your procedure allowing soap and water to run over incision. Do not scrub. Do not soak. Blot dry. Follow up: Please confirm a follow up appointment with your surgeon 2 weeks post operatively. Please make an appointment to follow up with your PCP in 1-2 weeks after surgery for evaluation 3 phase, 3-week plan POST OP WEEKS 1-3 1. Lifting/carrying/pushing/pulling limited to less than 5 pounds. 2. Do not sit for longer than 15 minutes at one time. Get up and walk around. Prolonged sitting is NOT advised. If you lay down, see if you can tolerate laying down on you front (belly side) 3. Walk for periods of 15 minutes = 1 mile but no longer; do it multiple times times each day. 4. Ice your low back after activity. POST OP WEEKS 3-6 1. Lifting limited to less than 20 pounds. 2. Do not sit for longer than 30 minutes at a time. Frequently change positions. Use a sit-to stand workstation or take frequent breaks from sitting if you have returned to work. 3. Walk for 30 minutes each day. If possible, do these three or more times a day POST OP WEEKS 6+ At your 6-week appointment we will give you a physical therapy referral to focus on a core stabilization and strengthening program. You should also work on leg & buttock strengthening, hamstring & quadriceps stretching, and continue a low i mpact aerobic activity program such as swimming, walking, or riding a stationary bicycle. During the initial 6 weeks after your surgery, you are at the highest risk of re-injuring your spine. You should generally avoid BLTs (bending, lifting and twisting combination motions) and follow the above guidelines to reduce the chance of reinjury. You can anticipate post op appointments in our office at approximately 3 weeks and 6 weeks after your surgery. INCISION CARE: If your incision is not draining you do NOT need to cover it with a dressing. Keep your incision clean, dry and intact. In most cases, we apply skin glue, aniya or sutures to the incision at the time of surgery. This will be like a crust or have the appearance of a scab and will fall off in time on its own. The stitches or aniya need to be removed at 3 weeks post op appointment. You may begin to shower 3 days after surgery (this allows the glue to carson well). However, please avoid scrubbing the incision site or peeling off any of the skin glue. This will ensure optimal healing of your incision. Also, during this time avoid soaking the incision area in water - this includes swimming pools, hot tubs or baths. No ointments, lotions or oils on the incision until your surgeon allows. Leave aniya, sutures or glue in place. Neurological dysfunction that comes on suddenly can also be a sign of a stroke. Below some common symptoms of a stroke are listed: B - balance difficulty such as sudden onset walking or leaning to one side - NEW E - eye problem such as sudden double vision or trouble seeing on one side - NEW F - Facial weakness or numbness on one side - NEW A - Arm or leg weakness or numbness on one side - NEW S - Slurred speech or difficulty with word finding - NEW T - Time is BRAIN! Call 911 as soon as you recognize these symptoms Diet: Consume a regular diet rich in vegetables and lean protein such as chicken or fish. You should consume in a ratio of approximately 20% fats|40% carbohydrates|40%protein. Vegetables, sweet potatoes, brown rice or quinoa are examples of good carbohydrates. Chips, white bread, cookies and sweets/sugar are examples of bad carbohydrates. Limit your bad carbs, go wild with good carbs. "Life's Simple 7" Guidelines as per [place] [employer] These will help you reclaim your life after surgery and plasterer helper in your recovery, keeping in mind your restrictions. (1) Get Active. Physical activity can help people lose weight, control high blood pressure and cholesterol, feel emotionally better, and sleep better. (2) Control Cholesterol. Avoid a diet high in saturated fat, trans fat, & cholesterol. Limit whole milk & cream, ice cream, butter, egg yolks, processed meats (like sausage and hot dogs), and fatty meats. Choose healthy foods that are low in saturated fat, trans fat and cholesterol which include: Fruits and vegetables, fiber rich grain products (like whole grain pasta and brown rice), lean meat such as chicken, fish, nuts, seeds, and legumes. (3) Eat Better. Eat small portions. Shop at the grocery with a list and do not stray from it. Tips for a healthy diet include: Limit sodium intake to less than 1500mg daily, avoid prepackaged, processed, and fast foods, choose a diet rich in fruits, vegetables, and whole grain, high fiber foods, and limit saturated & cholesterol in your diet. (4) Manage Blood Pressure. If you have high blood pressure, you should have a cuff at home so that you can check your blood pressure regularly. Be sure you have a good cuff. An arm one is generally better than a wrist one. Bring the cuff to a doctor's appointment to validate that the measurements that your cuff are taking are accurate. Take your blood pressure twice daily when you are sitting down and relaxing. Record the numbers in a log and bring this log with you to your doctors' appointments. (5) Lose Weight if your BMI is above 25. A healthy BMI is between 19-25. To calculate Your BMI, you may use a Standard BMI Calculator on the NIH BMI website: <www.nhlbi.nih.gov/guidelines/obesity/BMI/bmicalc.htm>. Weigh oneself daily. If you are overweight, set a goal to lose weight. A pound a week loss if needed is a good target. (6) Reduce Blood Sugar. Limit foods and liquids with "added sugars." (Added sugars include sucrose, fructose, glucose, maltose, dextrose, high fructose corn syrup, corn syrup, concentrated fruit juice and honey). (7) Stop Smoking. If you smoke, quitting smoking is one of the best things that you can do for your health. Smoking increases your risk of heart attack, stroke, and peripheral vascular disease, which is a build-up of plaque in your arteries. Please discard all the cigarettes and lighters in your house. Have a plan for what you will do when you have the urge to smoke. Direct and second- hand smoke shortens your life as well as the lives of your family, friends and others around you. For your health and the health of those around you, please consider quitting! Proper Bending Body Mechanics: Maintain a wide stance with one foot slightly in front of the other. Keep your back straight. Bend utilizing the strength in your hips and knees. Do not bend at the waist. Maintain the lifted object at your waist-level close to your body. Avoid lifting weight that causes immediately pain or pain anywhere in the body afterwards. Smoking/Nicotine If there was ever one thing that you could do to increase your overall health, decrease your risk of cardiovascular problems by about 39% the second you make the choice, it is to STOP SMOKING. Your body's most instant gratification is the second you stop smoking. We have all heard the studies, read the articles but it is true, smoking is extremely bad for your overall health, and moreover it is detrimental to your bone health. Nicotine, IN ANY FORM, kills bone cells, prevents your body from healing fractures, and significantly prolongs healing after surgery. In spine surgery specifically, it increases your risk of not healing your bones to create a fusion and increases your risk of having a revision surgery due to this up to 60%. I know it is hard. I know it feels impossible. But there are ways. Take control of your life. We are here to help you through it. And when you are ready, ask us and we can direct you to help if you desire. Use the START Plan to Quit Smoking (please visit the Helpguide.org website listed below for more information): S = Set a quit date. Choose a date within the next 2 weeks, so you have enough time to prepare without losing your motivation to quit. If you mainly smoke at work, quit on the weekend, so you have a few days to adjust to the change. T = Tell family, friends, and co-workers that you plan to quit. Let your friends and family in on your plan to quit smoking and tell them you need their support and encouragement to stop. Look for a quit sakina who wants to stop smoking as well. You can help each other get through the rough times. A = Anticipate and plan for the challenges you'll face while quitting. Most people who begin smoking again do so within the first 3 months. You can help yourself make it through by preparing ahead for common challenges, such as nicotine withdrawal and cigarette cravings. R = Remove cigarettes and other tobacco products from your home, car, and work. Throw away all your cigarettes (no emergency pack!), lighters, ashtrays, and matches. Wash your clothes and freshen up anything that smells like smoke. Shampoo your car, clean your drapes and carpet, and steam your furniture. T = Talk to your doctor about getting help to quit. Your doctor can prescribe medication to help with withdrawal and suggest other alternatives. If you can't see a doctor, you can get many products over the counter at your local pharmacy or grocery store, including the nicotine patch, nicotine lozenges, and nicotine gum. Resources for Quitting Smoking: <https://www.[place].gov/documents/[facility]/Quit_Tobacco_Resources_for_patients_313 480_7.pdf> Supplementation: Take recommended dosages of Vitamin D and Calcium to help fortify your bones and help them to heal. See your health maintenance packet for dosages and recommended levels. DVT/VTE prophylaxis: You will be given compression stockings from the hospital. Wear these daily for the first two weeks after surgery. You may take them off at night. You may be prescribed a medication to help thin your blood. Take this as directed. If you are not prescribed this medication, early and frequent ambulation has been shown to be the best prophylaxis to deep vein thrombosis and sequelae related to this event. Discharge Disposition: HOME SELF-CARE
[2023-04-25 11:26] LABS: BUN/Creat Ratio 18.83 Ratio (12.00-20.00); Blood Urea Nitrogen 11.3 mg/dL (9.0-27.0); Calcium 8.7 mg/dL (8.7-10.3); Carbon Dioxide 25.2 mmol/L (21.6-31.8); Chloride 102 mmol/L (96-109); Glucose 116 mg/dL (70-110); Potassium 4.2 mmol/L (3.5-5.5); Sodium 136 mmol/L (135-145)
== END 2023-04-25 11:45 | disposition home or self-care (01) ==
LOC: OR 08:58 → 4SSUR 16:11 → OR 04-25 11:45
PROVIDERS: ATTEND Orthopaedic Surgery
DX: M50.122 Cervical disc disorder at C5-C6 level with radiculopathy (principal); M47.22 Other spondylosis with radiculopathy, cervical region; M48.02 Spinal stenosis, cervical region; M25.78 Osteophyte, vertebrae; Z90.49 Acquired absence of other specified parts of digestive tract; Z98.890 Other specified postprocedural states; Z79.899 Other long term (current) drug therapy; Z91.041 Radiographic dye allergy status; Z90.710 Acquired absence of both cervix and uterus
CPT/HCPCS: 97161; 80048; 85025; 72040; 72125; 22551; 22552; 22853 ×2; 22845; 20930; 20937; C1713; J2250; J0690 ×2; J2405; J1170 ×3

== ENCOUNTER → 2023-12-04 | Outpatient (CLI) | payer BC ==
--- NOTE | 2023-12-04 11:12 | XR ---
EXAMINATION TYPE: XR chest 2V DATE OF EXAM: 12/04/2023 10:37 AM CLINICAL INDICATION: Female, 58 years old with history of J06.9 ACUTE UPPER RESPIRATORY INFECTION, UN SPECIFI; [facility] COMPARISON: None TECHNIQUE: XR chest 2V Frontal view of the chest. FINDINGS: Lungs/Pleura: There is no evidence of pleural effusion, focal consolidation, or pneumothorax. Pulmonary vascularity: Unremarkable. Heart/mediastinum: Cardiomediastinal silhouette is unremarkable. Musculoskeletal: No acute osseous pathology. IMPRESSION: No acute cardiopulmonary disease/process. [facility] Siva Floyd, , 12/04/2023 11:10 AM
== END | disposition home or self-care (01) ==
LOC: RADXRMAIN 10:28
PROVIDERS: ATTEND Internal Medicine Geriatric Medicine
DX: J06.9 Acute upper respiratory infection, unspecified (principal)
CPT/HCPCS: 71046